=== PATIENT | male | born 1950 | race Caucasian/White ===

== ENCOUNTER 2017-07-18 09:34 | Inpatient (IN) | payer BC ==
[2017-07-18] MEDS ORDERED: NITROGLYCERIN SL TABS 0.4 MG TAB SUBLINGUAL ONE (10:00)
[2017-07-18] MEDS ORDERED: METOPROLOL TARTRATE 5 MG/5 ML VIAL IVP ONE ×2 (10:10→12:25)
[2017-07-18] MEDS ORDERED: ATORVASTATIN 80 MG TAB PO STA (10:47)
[2017-07-18] MEDS ORDERED: SODIUM CHLORIDE 0.9% 1,000 ML in EMPTY BAG 1 BAG IV ONE (10:47)
[2017-07-18] MEDS ORDERED: ALPRAZolam 0.25 MG TAB PO PRN (10:47)
[2017-07-18] MEDS ORDERED: ASPIRIN 325 MG TAB PO STA (10:47)
[2017-07-18] MEDS ORDERED: ALPRAZolam 0.5 MG TAB PO PRN (10:47)
[2017-07-18] MEDS ORDERED: NITROGLYCERIN SL TABS 0.4 MG TAB SUBLINGUAL PRN ×2 (10:47→13:22)
[2017-07-18] MEDS ORDERED: ASPIRIN 325 MG TAB ONE (10:49)
[2017-07-18 11:29] LABS: Glucose,Whole Blood 112 mg/dL (75-99)
[2017-07-18 11:38] LABS: Basophils # (A) 0.1 k/uL (0-0.2); Basophils % (A) 1 %; Eosinophils # (A) 0.3 k/uL (0-0.7); Eosinophils % (A) 4 %; HGB 15.6 gm/dL (13.0-17.5); Lymphocytes # (A) 1.5 k/uL (1.0-4.8); Lymphocytes % (A) 24 %; MCH 30.5 pg (25.0-35.0); MCHC 36.3 g/dL (31.0-37.0); MCV 84.2 fL (80.0-100.0); Mean Platelet Volume 6.9; Monocytes # (A) 0.4 k/uL (0-1.0); Monocytes % (A) 6 %; Neutrophils # (A) 3.8 k/uL (1.3-7.7); Neutrophils % (A) 62 %; Platelet Count 181 k/uL (150-450); RDW 13.5 % (11.5-15.5); WBC 6.1 k/uL (3.8-10.6)
--- NOTE | 2017-07-18 11:48 | P.CRDCN ---
History of Present Illness Consult date: 07/18/17 History of present illness: This is a 66-year-old gentleman with history of hypertension, non-insulin- dependent diabetes mellitus and also hypercholesterolemia who was sent here for cardiac evaluation. Patient also has history of smoking for 35 years. Patient did not complain of any chest pain. However, on the stress test patient started developing ST depressions within 1 minute of exercise unassociated with any chest pain. Patient had frequent PVCs. Stress echocardiogram showed severe hypokinesia of the anterior septal and lateral wall area with suggestive of concurrent cavity dilatation. Patient was given sublingual nitro and also IV Lopressor and after about 10:15 minutes, his a ST-T changes gradually came back to normal. Because of high risk for stress test, patient is advised to have a cardiac catheterization for definitive diagnosis. Patient and family were explained the risks and procedures. Patient is being admitted to the hospital. Patient doesn't have any previous history of myocardial infarction. He does have significant family history of ischemic heart disease. Review of Systems REVIEW OF SYSTEMS: CONSTITUTIONAL:. Patient is doing well. No complaints of fever or chills EYES: Denies diplopia, blurring of vision EARS, NOSE, MOUTH, THROAT: Denies headaches, denies sore throat. CARDIOVASCULAR: Denies chest pain, denies shortness of breath, denies palpitations RESPIRATORY: Denies shortness of breath, denies cough. GASTROINTESTINAL: Denies change in appetite, denies abdominal pain, denies diarrhea GENITOURINARY: Denies hematuria, denies infections. MUSKULOSKELETAL: Denies pain, denies swelling. Denies any cramps or claudication INTEGUMENTARY: Denies rash, denies eczema. NEUROLOGICAL: Denies focal weakness, or visual disturbance. Denies any dizziness or syncope PSYCHIATRIC: Denies anxiety, denies depression. HEMATOLOGIC/LYMPHATIC: Denies any bleeding, denies enlarged lymph nodes. Past Medical History Past Medical History: Diabetes Mellitus, Hypertension Medications and Allergies Home Medications Medication Instructions Recorded Confirmed Type Atorvastatin [Lipitor] 40 mg PO DAILY 07/18/17 07/18/17 History Metoprolol Succinate [Toprol XL] 25 mg PO DAILY 07/18/17 07/18/17 History Non-Formulary Drug [Non Formulary 1 each PO ONCE 07/18/17 07/18/17 History Drug] Non-Formulary Drug [Non Formulary 1 each PO ONCE 07/18/17 07/18/17 History Drug] Allergies Allergy/AdvReac Type Severity Reaction Status Date / Time No Known Allergies Allergy Verified 07/18/17 10:47 Physical Exam Vitals: Intake and Output 07/17/17 07/18/17 07/18/17 22:59 06:59 14:59 Other: Weight 86.455 kg Patient Weight 07/19/17 06:59 Weight 86.455 kg GENERAL EXAM: Patient is alert and oriented and doesn't appear to be in any acute distress HEENT: Normocephalic. Normal reaction of pupils, equal size, normal range of extraocular motion. No erythema or exudates in the throat. NECK: No masses, no nuchal rigidity. CHEST: No chest wall deformity. LUNGS: Equal air entry with no crackles or wheeze. HEART: S1 and S2 normal with no audible mumurs or gallops. Regular rhythm, femorals equal on both sides.. ABDOMEN: No hepatosplenomegaly, normal bowel sounds, no guarding or rigidity. SKIN: No rashes CENTRAL NERVOUS SYSTEM: No focal deficits. EXTREMITIES: No cyanosis, clubbing or edema. Results 07/18/17 11:15 CBC 07/18/17 Range/Units 11:15 WBC 6.1 (3.8-10.6) k/uL RBC 5.10 (4.30-5.90) m/uL Hgb 15.6 (13.0-17.5) gm/dL Hct 43.0 (39.0-53.0) % Plt Count 181 (150-450) k/uL Current Medications Generic Name Dose Route Start Last Admin Trade Name Freq PRN Reason Stop Dose Admin Alprazolam 0.25 mg 07/18/17 10:47 Xanax PO Q6HR PRN Mild Anxiety Alprazolam 0.5 mg 07/18/17 10:47 Xanax PO Q6HR PRN Moderate Anxiety Nitroglycerin 0.4 mg 07/18/17 10:47 Nitrostat SUBLINGUAL Q5M PRN Chest Pain Intake and Output 07/17/17 07/18/17 07/18/17 22:59 06:59 14:59 Other: Weight 86.455 kg Patient Weight 07/19/17 06:59 Weight 86.455 kg 03/09/18 11:15 EKG Interpretations (text) Initial EKG showed sinus rhythm. Subsequent EKG showed significant ST depression in the anterolateral leads during exercise Assessment and Plan (1) Positive cardiac stress test Current Visit: Yes Status: Acute Code(s): R94.39 - ABNORMAL RESULT OF OTHER CARDIOVASCULAR FUNCTION STUDY SNOMED Code(s): 602941636 (2) Hypertension Current Visit: Yes Status: Acute Code(s): I10 - ESSENTIAL (PRIMARY) HYPERTENSION SNOMED Code(s): 46929484 (3) Hypercholesterolemia Current Visit: Yes Status: Acute Code(s): E78.00 - PURE HYPERCHOLESTEROLEMIA , UNSPECIFIED SNOMED Code(s): 14744030 (4) History of smoking Current Visit: Yes Status: Acute Code(s): Z87.891 - PERSONAL HISTORY OF NICOTINE DEPENDENCE SNOMED Code(s): 84654602310819444 Plan: Will proceed with cardiac catheterization for definite diagnosis. Meanwhile we' ll continue his medications.
[2017-07-18] MEDS ORDERED: fentaNYL (PF) 50 MCG/ML 2 ML AMP IVP ONE (12:00)
[2017-07-18] MEDS ORDERED: MIDAZOLAM 2 MG/2 ML VIAL IVP ONE (12:00)
[2017-07-18] MEDS ORDERED: LIDOCAINE 2% INJ 20 MG/ML SQ ONE (12:04)
[2017-07-18 12:26] LABS: Calcium 9.8 mg/dL (8.4-10.2); Potassium 4.6 mmol/L (3.5-5.1)
--- NOTE | 2017-07-18 12:35 | P.PCN ---
Date of Procedure: 07/18/17 Preoperative Diagnosis: Multiple risk factors and strongly positive stress test. Postoperative Diagnosis: Critical lesion involving the proximal LAD. Mild disease in the circumflex and moderate disease in the RCA Description of Procedure: HISTORY: This is a 66-year-old gentleman with history of hypertension, non- insulin-dependent diabetes mellitus and hypercholesterolemia who came for stress test. Patient developed [address] depression within 3 minutes of exercise. These changes were not associated with any chest pain. Stress echo showed severe hypokinesia of the anteroseptal and anterolateral wall with the left ventricle cavity dilatation. Patient is advised to have cardiac catheterization for definitive diagnosis. CONSENT:I have discussed the risks, benefits and alternative therapies for the above-mentioned procedure and for both sedation/analgesia as well as necessary blood product administration, if indicated, as they pertain to this patient. The patient has indicated understanding and acceptance of the risks and procedures discussed. PROCEDURE: Patient was brought to the lab in a fasting state. Patient was given some IV sedation. The right groin is infiltrated with lidocaine and right femoral artery was entered using Seldinger technique. A 6-Lithuanian catheter was left in place and selective coronary arteriography was performed. Patient tolerated the procedure well. Femoral angiogram was performed. Patient is found to have significant disease involving the proximal LAD. Patient is waiting to have stent placement by Dr. Smith Conscious Sedation: Versed 1 mg Fentanyl 50 g Duration 16minutes HEMODYNAMICS: The aortic pressure is about 160/70. Left ankle end-diastolic pressure is about 15-20. There was no gradient across the aortic valve SELECTIVE CORONARY ARTERIOGRAPHY: LEFT MAIN: Normal length and patent THE LEFT ANTERIOR DESCENDING CORONARY ARTERY:. There is a 95% stenosis involving the proximal left anterior descending coronary artery. The rest of the LAD is free of occlusive disease THE LEFT CIRCUMFLEX AND IS CORONARY ARTERY:. This is a moderate caliber vessel giving rise moderate sized OM branch. There is mild disease involving the proximal circumflex and also proximal OM branch THE RIGHT CORONARY ARTERY:. This is a good caliber vessel. There appears to be diffuse disease involving the proximal and mid segment involving a long segment. There appears to be about 50-60% long stenosis LEFT VENTRICULOGRAPHY: Not performed FINAL IMPRESSION:. Critical lesion involving the proximal LAD. Mild disease involving the circumflex and moderate disease involving the RCA involving a long segment in the proximal and mid area PLAN: Stent placement of the LAD to be done by Dr. Smith PROGNOSIS: Fair with successful therapy.
[2017-07-18] MEDS ORDERED: PRASUGREL 10 MG TAB PO ONE (12:57)
[2017-07-18] MEDS ORDERED: BIVALIRUDIN BOLUS 250 MG/50 ML IV ONE (12:57)
[2017-07-18] MEDS ORDERED: BIVALIRUDIN 250 MG in SODIUM CHLORIDE 0.9% 50 ML IV ONE (12:58)
[2017-07-18] MEDS ORDERED: IOHEXOL 350 MG/ML 125ML BOTTLE INJ ONE (13:17)
[2017-07-18] MEDS ORDERED: RX INFO: IV CONTRAST WAS GIVEN 1 EACH MISC MISCELLANE PRN (13:22)
[2017-07-18] MEDS ORDERED: ZOLPIDEM 5 MG TAB PO PRN (13:22)
[2017-07-18] MEDS ORDERED: MAG HYDROX/AL HYDROX/SIMETH 30 ML CUP PO PRN (13:22)
[2017-07-18] MEDS ORDERED: ATROPINE SULFATE 0.1 MG/ML 10ML SYRINGE IV PRN (13:22)
[2017-07-18] MEDS ORDERED: SODIUM CHLORIDE 0.9% 1,000 ML IV SCH (13:30)
--- NOTE | 2017-07-18 13:39 | PTCA ---
PERCUTANEOUSTRANS CORORONARY ANGIOGRAPHY Mr. Moy is a 66-year-old male with known history of hypertension, diabetes mellitus, who underwent a stress test as an outpatient, was found to have early EKG changes as well as anterior wall segmental wall motion abnormality on his stress echo. In view of that, he underwent cardiac catheterization by Dr. Molina and was found to have critical stenosis involving the proximal left anterior descending artery. In view of that, recommendation was made regarding angioplasty and stenting. The procedure as well as the risks and the complications were discussed with the patient who is in full understanding and agreement. PROCEDURE: A 6-Polish EBU 3.75 guiding catheter introduced in the system. A cannulating the left main, a 0.014 balanced medium weight J-wire was advanced across the lesion and positioned distally. Then a 3.0 x 15 mm Xience Alpine stent was deployed, postdilated at 14 atmospheres. After the last inflation, after appropriate wait the balloon and the guidewire were withdrawn back in the guiding catheter. Images were obtained and repeated. Those images reveal stable successful stenting. At that point, the guiding catheter, the balloon and the guidewire were removed. The sheath was removed. Hemostasis was obtained with deployment of an Angio-Seal. There was no immediate complication. Patient is returned to his room in stable condition. Of note, the patient had chest discomfort and EKG changes with inflation that resolved at the end of the procedure. He received Angiomax per protocol as well as oral loading dose of Effient. RESULTS: Successful stenting of the proximal left anterior descending artery with reduction of stenosis from 95% to 0%. RECOMMENDATION: Patient will be continued on aspirin, Effient, beta blockers, GARRET inhibitor and statin. The importance of dual antiplatelet treatment were discussed with the patient and he is in full understanding and agreement. Duration of the procedure is 16 minutes. MMODL / IJN: [id number] /
[2017-07-18 14:41] VITALS: BMI 29.0
[2017-07-18] MEDS: ATORVASTATIN 80 MG TAB PO SCH (19:52)
--- NOTE | 2017-07-18 23:06 | HP ---
HISTORY AND PHYSICAL DATE OF ADMISSION: July 18, 2017. PRESENT COMPLAINT: Abnormal stress test. HISTORY OF PRESENTING COMPLAINT: This is a very pleasant 56-year-old patient of Dr. Lu. Chronic stable medical conditions include diabetes, hypertension, nicotine dependence. The patient's was keen for him to get a stress test done because of his cardiac risk factors and family history. Hence patient came to get a stress test done. On stress test, patient was found to have ST-segment changes and also the stress echocardiogram was found to have a wall motion abnormality. Subsequently patient was taken for a cardiac catheterization, found to have a 95% LAD lesion that was successfully angioplasty stented. The patient did not really have any symptoms and had a good exercise tolerance. Otherwise the patient is currently comfortable, lying in bed. REVIEW OF SYSTEMS: CONSTITUTIONAL: None. HEENT none. Respiratory none. Cardiovascular none. Gastrointestinal none. : None. Musculoskeletal: None. Dermatologic, hematologic, lymphatic none. Psychiatry none. Neurological none. PAST MEDICAL HISTORY: Diabetes mellitus type 2, hypertension. PAST SURGICAL HISTORY: Hernia repair. SOCIAL HISTORY: Patient smoked 2 packs a day for 35 years, stopped over 10 years ago. Worked in [employer] including [employer], etc. . Drinks alcohol occasionally. FAMILY HISTORY: Of stroke, hypertension and liver disease. HOME MEDICATIONS: 1. Olmesartan. 2. Amlodipine. 3. Hydrochlorothiazide combination of 40/10/ 1 tab p.o. daily. 4. /metformin 09/999 1 tab p.o. b.i.d. 5. Toprol-XL 25 p.o. daily. 6. Lipitor 40 mg p.o. daily. ALLERGIES: None. PHYSICAL EXAMINATION: Temperature 98.2, pulse 74, respiratory 18, blood pressure 154/77, pulse ox 97% on room air. General appearance: Average build, lying in bed comfortable. EYES: Pupils equal. Conjunctivae are normal. HEENT external appearance of nose and ears normal. Oral cavity normal. Neck: JVD not raised. Mass not palpable. Respiratory effort normal. Lungs slightly decreased, fair entry. Cardiovascular 1st and 2nd sounds normal. No edema. ABDOMEN: Soft, nontender. Liver and spleen not palpable. Lymphatics: No lymph nodes palpable in the neck or axillae. PSYCHIATRY: Alert and oriented x3. Mood and affect normal. Neurological: Pupils equal. Cranial nerves grossly intact. Power and sensation grossly intact. INVESTIGATIONS: White count 6.1, hemoglobin 15.6, potassium 4.6. BUN and creatinine is normal. ASSESSMENT: 1. Coronary artery disease detected by abnormal stress test with successful angioplasty to the LAD. 2. Diabetes mellitus type 2 on oral hypoglycemic. 3. Essential hypertension. 4. Hyperlipidemia. PLAN: Patient is status post a stent to the LAD. The patient is put on aspirin and Effient. Accu-Cheks will be followed. Metformin component of combination oral hypoglycemics will be held. Check Accu-Cheks. Care was discussed with the patient. Questions were answered. Copy to Dr. Lu. Patient is seen by Dr. Molina from Cardiology and who also did a diagnostic cardiac catheterization followed by intervention by Dr. Smith. Copy to Dr. Lu. MMNATALIYAL / IJN: [id number] /
[2017-07-19 05:52] LABS: Glucose,Whole Blood 116 mg/dL (75-99)
[2017-07-19] MEDS: INSULIN ASPART 100 UNIT/ML 1 ML 10 ML VIAL SQ SCH ×2 (06:22→12:42)
[2017-07-19 06:40] VITALS: RESP 18
[2017-07-19 07:06] LABS: Calcium 9.6 mg/dL (8.4-10.2); Potassium 5.1 mmol/L (3.5-5.1)
[2017-07-19] MEDS ORDERED: amLODIPine 10 MG TAB PO SCH (09:00)
[2017-07-19] MEDS ORDERED: OLMESARTAN PO SCH (09:00)
[2017-07-19] MEDS ORDERED: HYDROCHLOROTHIAZIDE 25 MG TAB PO SCH (09:00)
[2017-07-19] MEDS ORDERED: ASPIRIN 81 MG PO SCH (09:00)
[2017-07-19] MEDS ORDERED: HCTHIAZID PO SCH (09:00)
[2017-07-19] MEDS ORDERED: AMLODIPIN PO SCH (09:00)
[2017-07-19] MEDS ORDERED: METOPROLOL SUCCINATE (ER) 25 MG TAB.ER.24H PO SCH (09:00)
[2017-07-19] MEDS ORDERED: LOSARTAN 50 MG TAB PO SCH (09:00)
[2017-07-19] MEDS ORDERED: [UNRECOGNIZED DRUG - OTHER] PO SCH (09:00)
[2017-07-19 09:20] VITALS: TEMP 98
[2017-07-19 11:46] LABS: Glucose,Whole Blood 129 mg/dL (75-99)
[2017-07-19] MEDS ORDERED: PRASUGREL 10 MG TAB PO SCH (12:00)
[2017-07-19] MEDS: ATORVASTATIN 80 MG TAB PO SCH (12:47)
[2017-07-19 13:16] VITALS: PULSE 60
[2017-07-19 13:23] VITALS: BP 138/45
--- NOTE | 2017-07-19 13:51 | P.PN ---
Subjective Patient is doing well from a chronic standpoint. His groin is healed well. He denies any chest discomfort no undue shortness of breath and dizziness lightheadedness or palpitations vitals are stable Afebrile 90F, pulse rate in the 70s, blood pressure 130-45 mmHg It sounds are clear no rhonchi no crackles Heart sounds are normal normal S1 normal S2 Abdomen soft nontender Groins of healed well Impression Coronary artery disease, significant status post cardiac stenting Plan continue current medications including dual antiplatelet therapy and patient to go home and follow Dr. Smith Objective - Vital Signs Vital signs: Vital Signs Temp 98 F 07/19/17 08:00 Pulse 60 07/19/17 12:00 Resp 18 07/19/17 12:00 BP 138/45 07/19/17 12:00 Pulse Ox 95 07/19/17 12:00 Intake & Output 07/18/17 07/19/17 07/19/17 18:59 06:59 18:59 Intake Total 1820.1 820 240 Output Total 800 Balance 1020.1 820 240 Weight 86.455 kg 89.5 kg Intake: IV 470.1 820 Sodium Chloride 0.9% 1, 820 000 ml @ 100 mls/hr IV . Q10H KELVIN Rx#:[id number] Intake, IV Titration 550 Amount Sodium Chloride 0.9% 1, 550 000 ml @ 100 mls/hr IV . Q10H KELVIN Rx#:[id number] Oral 800 240 Output: Urine 800 Other: Voiding Method Toilet # Voids 3 - Labs CBC & Chem 7: 07/18/17 11:15 07/19/17 05:56 Labs: Abnormal Lab Results - Last 24 Hours (Table) 07/19/17 07/19/17 07/19/17 Range/Units 05:50 05:56 11:41 Glucose 120 H (74-99) mg/dL POC Glucose (mg/dL) 116 H 129 H (75-99) mg/dL Triglycerides 262 H (<150) mg/dL
--- NOTE | 2017-07-19 18:25 | DS ---
DISCHARGE SUMMARY DATE OF ADMISSION: July 18, 2017. DATE OF DISCHARGE: July 19, 2017. FINAL DIAGNOSES: 1. Coronary artery disease with abnormal stress test. 2. Diabetes mellitus type 2 on oral hypoglycemics. 3. Essential hypertension. 4. Hyperlipidemia. PROCEDURE: Cardiac catheterization with angioplasty stenting to LAD. HOSPITAL COURSE: This patient presented with a stress test that was abnormal. Underwent coronary intervention to LAD. Successful angioplasty and stenting. Patient is asymptomatic, up and about. The patient's LDL is 84. EXAM: Lungs are clear. Cardiovascular: 1st and second sounds normal. CONSULTATION: Dr. Molina did the diagnostic catheterization and Dr. Smith did the intervention part. DISCHARGE MEDICATIONS: 1. Xigduo XR 09/999 1 tab p.o. b.i.d. 2. Toprol-XL 25 mg p.o. daily. 3. Aspirin 81 mg daily. 4. Lipitor 80 mg q.h.s. 5. Chlorthalidone 25 mg p.o. daily. 6. Cozaar 150 mg p.o. q.h.s. 7. Nitrostat 0.4 sublingual q.5 p.r.n. 8. Effient 10 mg p.o. daily. 9. Norvasc 10 mg p.o. daily. FOLLOW UP: With Dr. Lu in 1 week. Follow up with Dr. Molina in [address] Lu. MMNATALIYAL / IJN: [id number] /
--- NOTE | 2017-07-22 11:14 | ECHOS ---
- Stress Test Note Stress Test Results/Findings: Exam Performed: stress echo exercise Exam Date: 07/18/17 Reason for Exam: chest pain Height: 5 ft 8 in Weight: 86.455 kg Protocol: jeffrey Stage: 2 Duration of Exercise: 3:45 Resting Heart Rate: 98 Resting Blood Pressure: 163/56 Maximum Achieved Heart Rate: 151 Maximum Achieved Blood Pressure: 197/88 85% PMHR: 133 100% PMHR: 156 METS: 7.1 Technologist Comment: Stress Test Results/Findings: This is a 66-year-old gentleman with history of hypertension, non-insulin- dependent diabetes mellitus and previous smoking history who was sent for cardiac evaluation because of risk factor profile. He also has history of ischemic heart disease in the family. Baseline EKG showed sinus rhythm with normal VT interval and QRS duration. Blood pressure at rest is 163/56 with a pulse rate of 98. Patient walked on the Jeffrey protocol for about 3 minutes and 45 seconds achieving a maximum to 151 with a blood pressure 197/88. EKGs during exercise showed about [address] depression in inferolateral leads suggestive of ischemia. Patient also had frequent PVCs. Patient did not experience any chest pain. He took about almost 18 minutes for normalization of the EKG changes. Patient was given sublingual nitro and also IV Lopressor. Echo data. Baseline echo images show normal wall motion and thickening. Exercise echo images showed severe hypokinesia to dyskinesia of the anteroseptal and anterolateral wall with generalized hypokinesia and left ventricular cavity dilatation. Final impression: #1. Strongly positive stress test at low workloads #2. Strongly positive stress echo suggestive of a the left main disease or triple- vessel disease #3. Patient did not experience any chest pain MTDD
== END 2017-07-19 14:30 | disposition home or self-care (01) | DRG 247 ==
LOC: RADNMMAIN 09:34 → 6SEL 10:31
PROVIDERS: ADMIT Hospitalist; ATTEND Hospitalist
PROC: B2111ZZ Fluoroscopy of Multiple Coronary Arteries using Low Osmolar Contrast (ICD-10-PCS; 2017-07-18)
PROC: 027034Z Dilation of Coronary Artery, One Artery with Drug-eluting Intraluminal Device, Percutaneous Approach (ICD-10-PCS; principal; 2017-07-18 11:45)
PROC: 4A023N7 Measurement of Cardiac Sampling and Pressure, Left Heart, Percutaneous Approach (ICD-10-PCS; 2017-07-18 11:45)
DX: I25.10 Atherosclerotic heart disease of native coronary artery without angina pectoris (principal); E11.9 Type 2 diabetes mellitus without complications; E78.00 Pure hypercholesterolemia, unspecified; E78.5 Hyperlipidemia, unspecified; I10 Essential (primary) hypertension; Z79.84 Long term (current) use of oral hypoglycemic drugs; Z79.899 Other long term (current) drug therapy; Z82.49 Family history of ischemic heart disease and other diseases of the circulatory system; Z87.891 Personal history of nicotine dependence; I49.3 Ventricular premature depolarization
CPT/HCPCS: 80048; 80061; 85025; 93017; 93350; 93458

== ENCOUNTER → 2018-07-09 | Outpatient (CLI) | payer BC ==
[2018-07-09 13:23] LABS: HCT 46.6 % (39.0-53.0); HGB 15.7 gm/dL (13.0-17.5); MCH 29.9 pg (25.0-35.0); MCHC 33.8 g/dL (31.0-37.0); MCV 88.5 fL (80.0-100.0); Mean Platelet Volume 6.4; Platelet Count 208 k/uL (150-450); RBC 5.27 m/uL (4.30-5.90); RDW 13.8 % (11.5-15.5); WBC 7.1 k/uL (3.8-10.6)
[2018-07-09 18:43] LABS: Anion Gap 10.9 mmol/L (4.00-12.00); Carbon Dioxide 28.1 mmol/L (21.6-31.8); Potassium 4.3 mmol/L (3.5-5.5)
== END | disposition home or self-care (01) ==
LOC: LABWHC1 11:55
PROVIDERS: ATTEND Internal Medicine Cardiovascular Disease
DX: Z01.812 Encounter for preprocedural laboratory examination (principal); I10 Essential (primary) hypertension; E11.9 Type 2 diabetes mellitus without complications; E78.2 Mixed hyperlipidemia
CPT/HCPCS: 36415; 80051; 82565; 84520; 85027

== ENCOUNTER → 2018-07-14 | Day surgery (SDC) | payer BC ==
[2018-07-09 14:38] VITALS: BMI 28.5
[~2018-07-14] MED LIST: ADENOSINE 90 MG in SODIUM CHLORIDE 0.9% 60 ML IVP ONE; ALPRAZolam 0.25 MG TAB PO PRN; ALPRAZolam 0.5 MG TAB PO PRN; ASPIRIN 325 MG TAB PO STA; ASPIRIN 81 MG ONE; ASPIRIN 81 MG PO SCH; ATORVASTATIN 80 MG TAB PO SCH; ATORVASTATIN 80 MG TAB PO STA; CHLORTHALIDONE 25 MG TAB PO SCH; ERTUGLIFLOZIN PIDOLATE 15 MG PO SCH; HEPARIN SODIUM 1,000 UN/ML (10ML VL) IV ONE; IOPAMIDOL-370 150ML BTL INJ ONE; LIDOCAINE 1% INJ 10MG/ML (20 ML MDV) SQ ONE; METOPROLOL SUCCINATE (ER) 50 MG TAB.ER.24H PO SCH; MIDAZOLAM 2 MG/2 ML VIAL IVP ONE; NITROGLYCERIN 1000MCG/10ML SYRINGE INTRACORON ONE; NITROGLYCERIN SL TABS 0.4 MG TAB SUBLINGUAL PRN; NON-FORMULARY DRUG (Losartan Potassium [Losartan Potassium] 100 MG) PO SCH; PRASUGREL 10 MG TAB PO SCH; RX INFO: IV CONTRAST WAS GIVEN 1 EACH MISC MISCELLANE PRN; SODIUM CHLORIDE 0.9% 1,000 ML IV SCH; SODIUM CHLORIDE 0.9% 1,000 ML in EMPTY BAG 1 BAG IV ONE; VERAPAMIL SYRINGE (5 MG/10 ML) INTRAARTER ONE; amLODIPine 10 MG TAB PO SCH; fentaNYL (PF) 50 MCG/ML 2 ML AMP IVP ONE
[2018-07-14 08:44] LABS: Glucose,Whole Blood 133 mg/dL (75-99)
[2018-07-14 08:48] VITALS: RESP 18; TEMP 98
--- NOTE | 2018-07-14 10:28 | P.CARDCATH ---
Date of Procedure: 07/14/18 Preoperative Diagnosis: Positive stress test and known ischemic heart disease Postoperative Diagnosis: Intermediate to severe disease in the OM branch and also in the right coronary artery. Patent stent in the LAD Procedure(s) Performed: Left heart catheterization without left ventriculography Description of Procedure: HISTORY: This is a 67-year-old gentleman with history of known ischemic heart disease and previous stent placement of the left anterior descending. He is also known to have borderline lesion in the RCA and also so mild to moderate disease in circumflex. Recent stress test showed reversible ischemia involving the inferolateral segments. Patient is advised to have cardiac catheterization to assess coronary artery disease CONSENT:I have discussed the risks, benefits and alternative therapies for the above-mentioned procedure and for both sedation/analgesia as well as necessary blood product administration, if indicated, as they pertain to this patient. The patient has indicated understanding and acceptance of the risks and procedures discussed. PROCEDURE: Patient was brought to the lab in a fasting state. Patient was given some IV sedation. The right wrist is infiltrated with lidocaine and right radial artery was entered using Seldinger technique. A 6-Divehi catheter was left in place and selective coronary arteriography was performed. Patient tolerated the procedure well. Patient went on to have FFR of OM branch by Dr. Smith. Conscious Sedation: Versed 1mg Fentanyl 50 g Duration 24minutes HEMODYNAMICS: The aortic pressure is 150/60. Left ventricular end-diastolic pressure is about 12 to 15. There is no gradient across the aortic valve SELECTIVE CORONARY ARTERIOGRAPHY: LEFT MAIN: Short and free of occlusive disease THE LEFT ANTERIOR DESCENDING CORONARY ARTERY:. This is a good caliber vessel giving rise to good-sized diagonal branch. The stent in the proximal LAD is free of occlusive disease. The diagonal has mild to moderate disease THE LEFT CIRCUMFLEX AND IS CORONARY ARTERY:. This is a good caliber vessel giving rise good-sized OM branch. The OM branch has about 70% stenosis in the proximal portion. THE RIGHT CORONARY ARTERY: His is a moderate caliber vessel giving rise to PDA. There is a diffuse disease involving the proximal and mid segment with about 70% stenosis. This involves a long segment. The distal RCA is free of occlusive disease LEFT VENTRICULOGRAPHY:. Not performed FINAL IMPRESSION: Diffuse coronary artery disease with patent stent in the LAD, intermittently to severe disease involving the OM branch and also proximal and mid RCA. Films were reviewed with the Dr. Smith. Patient is going to have FFR of OM branch. If it is found to be significant, patient will have stent placement. Because of the diffuse long lesion in the RCA, it is advised that patient be treated medically for this lesion. PLAN: As above PROGNOSIS: Fair
--- NOTE | 2018-07-14 11:08 | PCN ---
PROCEDURE NOTE FRACTIONAL FLOW RESERVE MEASUREMENT: Mr. Moy is a 67-year-old male with known history of coronary artery disease status post percutaneous revascularization of his proximal LAD in 2018 who underwent cardiac catheterization by Dr. Molina and was found to have a patent stent with borderline lesion in the OM branch. In view of that, recommendation beginning the fraction flow reserve. The procedure as well as risks and the complications were discussed with the patient who is in full understanding and agreement. PROCEDURE: A 6-Cameroonian FL 3.5 guiding catheter in the system. After cannulating the left main, a [place] Doppler wire was advanced and the obtuse marginal branch positioned distally. Then fractional flow reserve was performed after an infusion of adenosine per protocol. The fractional flow reserve was 97. At that point, the guidewire and the sheath were removed. Hemostasis was obtained with deployment of a TR band. There was no immediate complication. Patient was returned to his room in stable condition. Of note, the patient received a total of 5000 units of intravenous heparin during the procedure. There was no immediate complication. FINDINGS: Non-hemodynamically significant lesion in the first obtuse marginal branch with fractional flow reserve of 97%. RECOMMENDATION: Patient will be continued on medical therapy. Those findings and recommendation were discussed with the patient and his family who are in full understanding and agreement. Duration of procedure is 13 minutes. MMODL / IJN: [id number] /
[2018-07-14 16:39] VITALS: BP 136/74; PULSE 64
== END | disposition home or self-care (01) ==
LOC: CATHCVL 07:58
PROVIDERS: ATTEND Internal Medicine Cardiovascular Disease
DX: I25.10 Atherosclerotic heart disease of native coronary artery without angina pectoris (principal); I10 Essential (primary) hypertension; E78.2 Mixed hyperlipidemia; I25.9 Chronic ischemic heart disease, unspecified; F17.200 Nicotine dependence, unspecified, uncomplicated; R94.39 Abnormal result of other cardiovascular function study; E11.9 Type 2 diabetes mellitus without complications; Z95.5 Presence of coronary angioplasty implant and graft; Z82.49 Family history of ischemic heart disease and other diseases of the circulatory system; Z79.82 Long term (current) use of aspirin; Z79.899 Other long term (current) drug therapy
CPT/HCPCS: 93458; 93571; C1887; C1769; C1894; J2250; J2001; J3010; J1644; J0153; Q9967

== ENCOUNTER → 2022-02-13 | Outpatient (CLI) | payer MEDICARE ==
[2022-02-13 13:55] LABS: African American GFR (CKD) 58 (>60 ml/min/1.73 sqM); Blood Urea Nitrogen 33 mg/dL (9-20); Non-African American GFR(CKD) 50 (>60 ml/min/1.73 sqM)
--- NOTE | 2022-02-13 17:37 | CT ---
EXAMINATION TYPE: CT angio neck DATE OF EXAM: 02/13/2022 HISTORY: CAROTID STENOSIS COMPARISON: CT DLP: 327.50 mGycm. Automated Exposure Control for Dose Reduction was Utilized. TECHNIQUE: CTA scan of the neck is performed with IV Contrast, patient injected with 65 mL of Isovue 370, axial images are obtained, coronal and sagittal reformatted images are reviewed. Three-D recons tructed images are created on an independent workstation and reviewed. Source images are reviewed. FINDINGS: Carotid/Vascular Structures: There is a 3 vessel arch. Vertebral arteries are codominant. Common car otid arteries to the bifurcations appear normal. Left carotid bifurcation: Atheromatous plaquing is present at the left carotid bifurcation. There zach ears to be a critical stenosis of the left internal carotid artery origin. On close inspection very f aint contrast appears to be within the small left internal carotid artery to the skull base. Left Ext ernal carotid artery is patent. Right carotid bifurcation: There is focal narrowing at the origin of the right internal carotid arter y. Based on measurement criteria, this is narrowing of at least 50%. On visual inspection this appear s greater. The right internal carotid artery is patent to the skull base. Cervical of [place]: Vertebral basilar system appears normal. Posterior cerebral vasculature is unrema rkable. Internal carotid arteries bifurcate normally into A1 and M1 segments. A2 segments are normal. The anterior communicating artery is patent. Left Posterior communicating artery is patent. Right po sterior communicating artery is patent. 3-D reconstructed images of the [place] of [place] are not obta ined. IMPRESSION: 1. Critical stenosis at the origin of the left internal carotid artery. 2. At least moderate stenosis of the proximal right internal carotid artery. This appears greater on visual inspection. NASCET criteria was used in interpretation of this exam? A [place] critical message alert has been initiated for Velasquez Smith MD via the [employer] Critical Results System on 02/13/2022 5:35 PM. This message alert has been sent to Velasquez Smith MD via the preferences provided by the clinician for the receipt of Radiology Critical Findings. Message ID [id number].
== END | disposition home or self-care (01) ==
LOC: RADCTMAIN 13:06
PROVIDERS: ATTEND Internal Medicine Interventional Cardiology
DX: I65.23 Occlusion and stenosis of bilateral carotid arteries (principal)
CPT/HCPCS: 80061; 82565; 84520; 70498; 36415; Q9967

== ENCOUNTER 2022-03-14 07:34 | Day surgery (SDC) | payer MEDICARE ==
[2022-03-12 08:24] VITALS: BMI 28.1
[~2022-03-14 07:34] MED LIST changes: -ADENOSINE 90 MG in SODIUM CHLORIDE 0.9% 60 ML IVP ONE; -ASPIRIN 81 MG ONE; -ASPIRIN 81 MG PO SCH; -ATORVASTATIN 80 MG TAB PO SCH; -CHLORTHALIDONE 25 MG TAB PO SCH; -ERTUGLIFLOZIN PIDOLATE 15 MG PO SCH; -HEPARIN SODIUM 1,000 UN/ML (10ML VL) IV ONE; +HEPARIN SODIUM,PORCINE 10,000 UNIT in SODIUM CHLORIDE 0.9% 1,000 ML IRRIGATION PRN; +HEPARIN SODIUM,PORCINE 2,500 UNIT in SODIUM CHLORIDE 0.9% 250 ML IRRIGATION PRN; -IOPAMIDOL-370 150ML BTL INJ ONE; -LIDOCAINE 1% INJ 10MG/ML (20 ML MDV) SQ ONE; -METOPROLOL SUCCINATE (ER) 50 MG TAB.ER.24H PO SCH; -MIDAZOLAM 2 MG/2 ML VIAL IVP ONE; -NITROGLYCERIN 1000MCG/10ML SYRINGE INTRACORON ONE; -NON-FORMULARY DRUG (Losartan Potassium [Losartan Potassium] 100 MG) PO SCH; -PRASUGREL 10 MG TAB PO SCH; -RX INFO: IV CONTRAST WAS GIVEN 1 EACH MISC MISCELLANE PRN; -SODIUM CHLORIDE 0.9% 1,000 ML IV SCH; -SODIUM CHLORIDE 0.9% 1,000 ML in EMPTY BAG 1 BAG IV ONE; +SODIUM CHLORIDE 0.9% 1,000 ML in EMPTY BAG 1 BAG IV SCH; -VERAPAMIL SYRINGE (5 MG/10 ML) INTRAARTER ONE; -amLODIPine 10 MG TAB PO SCH; -fentaNYL (PF) 50 MCG/ML 2 ML AMP IVP ONE
[2022-03-14 07:53] VITALS: RESP 18; TEMP 97.9
[2022-03-14 07:58] LABS: Basophils # (A) 0.1 k/uL (0-0.2); Basophils % (A) 1 %; Eosinophils # (A) 0.3 k/uL (0-0.7); Eosinophils % (A) 4 %; HCT 38.3 % (39.0-53.0); HGB 13.6 gm/dL (13.0-17.5); Lymphocytes # (A) 2.2 k/uL (1.0-4.8); Lymphocytes % (A) 27 %; MCHC 35.7 g/dL (31.0-37.0); MCV 86.8 fL (80.0-100.0); Mean Platelet Volume 7.6; Monocytes # (A) 0.5 k/uL (0-1.0); Monocytes % (A) 7 %; Neutrophils # (A) 4.8 k/uL (1.3-7.7); Neutrophils % (A) 59 %; Platelet Count 189 k/uL (150-450)
[2022-03-14 08:00] LABS: Glucose,Whole Blood 174 mg/dL (70-110)
[2022-03-14 08:16] LABS: Calcium 9.7 mg/dL (8.4-10.2)
[2022-03-14 08:20] LABS: Potassium 5.2 mmol/L (3.5-5.1)
[2022-03-14] MEDS ORDERED: HEPARIN SODIUM 1,000 UN/ML (10ML VL) ONE (10:59)
[2022-03-14] MEDS ORDERED: VERAPAMIL 2.5 MG/ML 2 ML AMP ONE (10:59)
[2022-03-14] MEDS ORDERED: fentaNYL (PF) 50 MCG/1 ML VIAL IV ONE (11:22)
[2022-03-14] MEDS ORDERED: LIDOCAINE 1% INJ 10MG/ML (30 ML VIAL-PF) SQ ONE (11:25)
[2022-03-14] MEDS: VERAPAMIL SYRINGE (5 MG/10 ML) INTRAARTER ONE ×2 (11:27→11:55)
[2022-03-14] MEDS: HEPARIN SODIUM 1,000 UN/ML (10ML VL) IV ONE ×2 (11:28→11:36)
[2022-03-14] MEDS ORDERED: CLOPIDOGREL 75 MG TAB ONE (11:33)
[2022-03-14] MEDS ORDERED: CLOPIDOGREL 75 MG TAB PO ONE (11:38)
[2022-03-14] MEDS ORDERED: NITROGLYCERIN 1000MCG/10ML SYRINGE INTRACORON ONE (11:39)
[2022-03-14] MEDS ORDERED: IOPAMIDOL-370 125ML BTL INJ ONE (11:49)
[2022-03-14] MEDS ORDERED: IOPAMIDOL-370 100ML BTL INJ ONE (11:56)
[2022-03-14] MEDS ORDERED: ATROPINE SULFATE 0.1 MG/ML 10ML SYRINGE IV PRN (12:00)
[2022-03-14] MEDS ORDERED: SODIUM CHLORIDE 0.9% 1,000 ML in EMPTY BAG 1 BAG IV SCH (12:00)
[2022-03-14] MEDS ORDERED: RX INFO: IV CONTRAST WAS GIVEN 1 EACH MISC MISCELLANE PRN (12:00)
[2022-03-14] MEDS ORDERED: NITROGLYCERIN SL TABS 0.4 MG TAB SUBLINGUAL PRN (12:00)
[2022-03-14] MEDS ORDERED: ZOLPIDEM 5 MG TAB PO PRN (12:00)
[2022-03-14] MEDS ORDERED: MAG HYDROX/AL HYDROX/SIMETH 30 ML CUP PO PRN (12:00)
[2022-03-14] MEDS ORDERED: SODIUM CHLORIDE 0.9% 1,000 ML IV ONE (13:00)
--- NOTE | 2022-03-14 14:22 | P.CARDCATH ---
Date of Procedure: 03/14/22 Description of Procedure: Cardiac Catheterization: The patient is a 71-year-old male with a known history of CAD, post PCI who has been complaining of chest discomfort and had an abnormal MPI. Recommendations were made regarding cardiac catheterization, the risks and the complications were discussed with the patient who is in full understanding and agreement. Procedure Description: Patient was brought to labor utilization superintendent in fasting semi-sedated state after receiving Fentanyl and Benadryl achieiving moderate conscious sedated state. Using Xylocaine Anesthesia and Seldinger technique, a 6-Peruvian sheath was introduced in the right radial artery . Subsequently, selective coronary angiography was performed using a 5-Peruvian 3.5 bend Saqib catheter. Multiple views of the coronary artery including hemiaxial views were obtained. The right Saqib catheter was used to cross the aortic valve and LVEDP was calculated. After obtaining images a 6-Peruvian 0.75 AL guiding catheter was introduced and after cannulating the right coronary ostium a 0.014 BMW J-wire was positioned in the distal RCA. A 2.5 x 12 mm Treck balloon was advanced and 2 inflation at 8 treva were done, after removing the balloon a 2.5 x 18 mm Xience jaymie point was advanced, deployed at 16 treva. After removing the balloon another 2.5 x 15 mm Xience jaymie point stent was positioned distal to the first one and dilated at 14 treva. An inflation in the overlapped segment was done. Following that and after obtaining images the catheter and sheath were removed. Hemostasis was obtained with deployment of TR band . There was no immediate complication. Patient was returned to room in stable condition. Of note, the patient received a total of 6000 units of intravenous heparin as well as intra-arterial verapamil. He received a loading dose of clopidogrel. His ACT was followed. He had EKG changes that resolved at the end of the procedure. Findings: Fluoroscopy: Calcifications involving the coronary arteries were noted Left main:This is a short sized vessel, bifurcating into LAD and left circumflex, left main has no high-grade stenosis. LAD:This is a large size vessel, calcified, reaching to the apex, giving rise to 2 diagonal branch, the stented segment in the proximal LAD is patent with no evidence of significant in-stent restenosis. There is mild disease in the midsegment of 20-30%. Left circumflex:This is a large nondominant vessel giving rise to a large proximal OM that has 40-50 % plaque, the rest of the vessel has no high-grade stenosis RCA:This is a large dominant vessel the midsegment has an 80-90% eccentric lesion prior to the bifurcation, the rest of the vessel has no high-grade stenosis. Left Ventriculogram:Not performed Hemodynamics:There was no gradient across the aortic valve , LVEDP [id number] mmHg Conclusion: 1. Calcified coronary arteries 2. Patent stent in the LAD with uwzj-kv-kgredqyz disease in the mid LAD and OM1 3. Critical stenosis in the mid RCA 4. Successful stenting of the mid RCA with reduction of stenosis from 85% to 0% Recommendations: The patient will continue on dual antiplatelet treatment with aspirin and clopidogrel for 6 months in addition to aggressive coronary risks modifications. He'll be evaluated at a later time regarding his obstructive carotid disease. The findings and the recommendations were discussed with the patient and the family and they were in full understanding and agreement. Duration of sedation is 39 minutes.
[2022-03-14 15:34] VITALS: BP 152/67; PULSE 64
[2022-03-14] MEDS ORDERED: hydrALAZINE HCL 50 MG TAB PO SCH (21:00)
[2022-03-15] MEDS ORDERED: METOPROLOL SUCCINATE (ER) 50 MG TAB.ER.24H PO SCH (09:00)
[2022-03-15] MEDS ORDERED: hydroCHLOROthiazide 12.5 MG CAP PO SCH (09:00)
[2022-03-15] MEDS ORDERED: ASPIRIN 81 MG PO SCH (09:00)
[2022-03-15] MEDS ORDERED: ATORVASTATIN 80 MG TAB PO SCH (09:00)
[2022-03-15] MEDS ORDERED: amLODIPine 10 MG TAB PO SCH (09:00)
[2022-03-15] MEDS ORDERED: EZETIMIBE 10 MG TAB PO SCH (09:00)
[2022-03-15] MEDS ORDERED: CLOPIDOGREL 75 MG TAB PO SCH (09:00)
[2022-03-15] MEDS ORDERED: LOSARTAN 50 MG TAB PO SCH (09:00)
== END 2022-03-14 16:20 | disposition home or self-care (01) ==
LOC: CATHCVL 07:34
PROVIDERS: ATTEND Internal Medicine Interventional Cardiology
DX: Q23.1 Congenital insufficiency of aortic valve (principal); E11.9 Type 2 diabetes mellitus without complications; I10 Essential (primary) hypertension; E78.5 Hyperlipidemia, unspecified
CPT/HCPCS: 93458; 80048; 85025; C9600; C1769 ×3; C1887; C1894; C1725; C1874 ×2; J2001; J1644; Q9967 ×2; J3010

== ENCOUNTER 2022-04-10 05:45 | Inpatient (IN) | payer MEDICARE ==
[2022-04-10] MEDS ORDERED: ASPIRIN 325 MG TAB PO PRN (05:47)
[2022-04-10] MEDS ORDERED: CLOPIDOGREL 75 MG TAB PO PRN (05:47)
[2022-04-10] MEDS ORDERED: NITROGLYCERIN SL TABS 0.4 MG TAB SUBLINGUAL PRN (05:47)
[2022-04-10] MEDS ORDERED: SODIUM CHLORIDE 0.9% 1,000 ML in EMPTY BAG 1 BAG IV ONE (05:47)
[2022-04-10] MEDS ORDERED: ALPRAZolam 0.25 MG TAB PO PRN (05:47)
[2022-04-10] MEDS ORDERED: ASPIRIN 81 MG PO PRN (05:47)
[2022-04-10] MEDS ORDERED: ALPRAZolam 0.5 MG TAB PO PRN (05:47)
[2022-04-10] MEDS ORDERED: SODIUM CHLORIDE 0.9% 1,000 ML IV ONE (06:06)
[2022-04-10 06:22] LABS: Glucose,Whole Blood 161 mg/dL (70-110)
[2022-04-10 06:25] VITALS: RESP 16; TEMP 98.2
[2022-04-10] MEDS ORDERED: ASPIRIN 81 MG ONE (06:30)
[2022-04-10] MEDS ORDERED: LIDOCAINE 1% INJ 10MG/ML (30 ML VIAL-PF) SQ ONE (07:44)
[2022-04-10] MEDS ORDERED: HEPARIN SODIUM 1,000 UN/ML (10ML VL) IV ONE (07:56)
[2022-04-10] MEDS ORDERED: hydrALAZINE HCL 20 MG/ML 1 ML VIAL IV ONE (07:57)
[2022-04-10] MEDS ORDERED: IOPAMIDOL-250 100ML BTL INTRAARTER ONE ×2 (08:13→08:35)
--- NOTE | 2022-04-10 08:41 | P.PCN ---
Description of Procedure: DESCRIPTION OF PROCEDURE(S): PROCEDURES PERFORMED: Ascending aortic root angiography, bilateral selective carotid angiography INDICATION: Carotid artery stenosis HISTORY: Patient is a pleasant 71 year old male with history of CAD with prior PCI and carotid artery stenosis with ultrasound read of occluded left carotid and right 80-99% stenosis. CTA had shown possible left carotid perfusion. Therefore decision was made to perform angiogram with possible carotid intervention. CONSENT:I have discussed the risks, benefits and alternative therapies for the above-mentioned procedure and for both sedation/analgesia as well as necessary blood product administration, if indicated, as they pertain to this patient. The patient has indicated understanding and acceptance of the risks and procedures discussed. PROCEDURE: After the risks, benefits and alternatives of the above mentioned procedure explained in detail with the patient, informed consent was obtained. Patient was taken to the catheterization lab and prepped and draped in usual fashion. 1% lidocaine was used to anesthetize the right femoral area. A 6- Japanese sheath was placed in the right femoral artery using modified Seldinger technique. A 5-Japanese pigtail catheter was inserted to the ascending aorta and DSA imaging was obtained. Next using VTK catheter the proximal right and left internal carotid arteries were engaged and selective angiography was performed. Angiography showed moderate disease and by measurement was 54% stenosis at its greatest. Therefore no intervention was recommended. A right femoral angiogram was performed and anatomoy was suitable for closure. A 6Fr Angioseal was placed with hemostasis achieved. The patient tolerated the procedure well. Patient was transported back to the post catheterization holding area in stable condition. Conscious Sedation: Patient was monitored under the direct supervision of vision of myself for conscious sedation using Versed and fentanyl for a total duration of 49 minutes ASCENDING AORTA: There is no significant aneurysm or stenosis. Right common carotid: No significant stenosis Right internal carotid artery: 75% stenosis of the DALIA Left common carotid: no significant stenosis Left internal carotid artery: 99% left internal carotid artery stenosis with trickle flow FINAL IMPRESSION: 1. 75% right internal carotid artery stenosis and 99% left internal carotid artery stenosis PLAN: 1. Aggressive risk factor modification per most recent ACC/AHA guidelines. 2. Discussed with vascular surgery and they will evaluate for possible left internal carotid artery intervention.
[2022-04-10] MEDS ORDERED: amLODIPine 10 MG TAB PO STA (08:55)
[2022-04-10] MEDS ORDERED: METOPROLOL SUCCINATE (ER) 50 MG TAB.ER.24H PO STA (08:55)
[2022-04-10] MEDS ORDERED: hydrALAZINE HCL 25 MG TAB PO STA (08:55)
[2022-04-10] MEDS ORDERED: LOSARTAN-HCTZ 50-12.5 MG 1 EACH TAB PO SCH (09:00)
[2022-04-10] MEDS ORDERED: LOSARTAN 50 MG TAB PO SCH (09:00)
--- NOTE | 2022-04-10 10:27 | IR ---
EXAMINATION TYPE: IR angio carotid cerv BILAT DATE OF EXAM: 04/10/2022 CLINICAL HISTORY: Carotid stenosis TECHNIQUE: Fluoroscopy. COMPARISON: CTA neck February 13, 2022. FINDINGS: Fluoroscopic guidance was provided during carotid angiogram procedure performed by Dr. Jackie thompson. A total of 7.2 minutes of fluoroscopic time was utilized during the procedure and 337 spot im ages was acquired. Please refer to procedure note for further details. IMPRESSION: As Above.
[2022-04-10 12:20] VITALS: BP 135/63; PULSE 84
== END 2022-04-10 12:55 | disposition home or self-care (01) | DRG 68 ==
LOC: 2ORMAIN 05:45
PROVIDERS: ADMIT Internal Medicine; ATTEND Internal Medicine
PROC: B41F1ZZ Fluoroscopy of Right Lower Extremity Arteries using Low Osmolar Contrast (ICD-10-PCS; 2022-04-10)
PROC: B3181ZZ Fluoroscopy of Bilateral Internal Carotid Arteries using Low Osmolar Contrast (ICD-10-PCS; 2022-04-10)
PROC: B3101ZZ Fluoroscopy of Thoracic Aorta using Low Osmolar Contrast (ICD-10-PCS; principal; 2022-04-10 07:30)
DX: I65.23 Occlusion and stenosis of bilateral carotid arteries (principal); E11.51 Type 2 diabetes mellitus with diabetic peripheral angiopathy without gangrene; I25.10 Atherosclerotic heart disease of native coronary artery without angina pectoris; Z98.61 Coronary angioplasty status; I08.3 Combined rheumatic disorders of mitral, aortic and tricuspid valves; I10 Essential (primary) hypertension; E78.5 Hyperlipidemia, unspecified; Z79.84 Long term (current) use of oral hypoglycemic drugs; Z79.899 Other long term (current) drug therapy
CPT/HCPCS: 86850; 86900; 86901

== ENCOUNTER → 2022-04-24 | Outpatient (CLI) | payer MEDICARE ==
[2022-04-24 14:27] LABS: Basophils # (A) 0.11 X 10*3/uL (0.00-0.10); Basophils % (A) 1.5 %; Eosinophils # (A) 0.31 X 10*3/uL (0.04-0.35); Eosinophils % (A) 4.1 %; HCT 37.5 % (39.6-50.0); HGB 13.1 g/dL (13.0-17.0); Immature Grans, Automated 0.3 %; Lymphocytes # (A) 2.04 X 10*3/uL (0.90-5.00); Lymphocytes % (A) 27.3 %; MCH 30.1 pg (27.0-32.0); MCHC 34.9 g/dL (32.0-37.0); MCV 86.2 fL (80.0-97.0); Mean Platelet Volume 9.6 fL (9.5-12.2); Monocytes # (A) 0.63 X 10*3/uL (0.20-1.00); Monocytes % (A) 8.4 %; NRBC Per 100 WBC 0 /100 WBCS (0.0-0.0); Neutrophils # (A) 4.37 X 10*3/uL (1.80-7.70); Neutrophils % (A) 58.4 %; Platelet Count 211 X 10*3/uL (140-440); RBC 4.35 X 10*6/uL (4.40-5.60); RDW 12.3 % (11.5-14.5); WBC 7.48 X 10*3/uL (4.50-10.00)
[2022-04-24 14:43] LABS: African American GFR (CKD) 51.4 (60.0-200.0); Albumin 4.6 g/dL (3.8-4.9); Albumin/Globulin Ratio 1.67 (1.60-3.17); Anion Gap 13.9 mmol/L (10.00-18.00); BUN/Creat Ratio 17.83 Ratio (12.00-20.00); Calcium 10.3 mg/dL (8.7-10.3); Carbon Dioxide 25.5 mmol/L (20.0-27.5); Globulin 2.7 g/dL (1.6-3.3); Non-African American GFR(CKD) 44.3 (60.0-200.0); Potassium 3.9 mmol/L (3.5-5.5); T4, Free (Free Thyroxine) 1.16 ng/dL (0.800-1.800); Total Bilirubin 0.4 mg/dL (0.30-1.20); Total Protein 7.3 g/dL (6.2-8.2)
[2022-04-24 15:05] LABS: INR 0.86 (0.90-1.11); Prothrombin Time 9.8 sec (9.9-11.9)
== END | disposition home or self-care (01) ==
LOC: LABWHC1 10:22
PROVIDERS: ATTEND Family Medicine
DX: Z01.812 Encounter for preprocedural laboratory examination (principal); I10 Essential (primary) hypertension; E11.9 Type 2 diabetes mellitus without complications
CPT/HCPCS: 36415; 80053; 83036; 84439; 84443; 85025; 85610

== ENCOUNTER 2022-05-14 08:30 | Inpatient (IN) | payer MEDICARE ==
[2022-05-24] MEDS ORDERED: ALPRAZolam 0.5 MG TAB PO PRN (05:46)
[2022-05-24] MEDS ORDERED: NITROGLYCERIN SL TABS 0.4 MG TAB SUBLINGUAL PRN (05:46)
[2022-05-24] MEDS ORDERED: ALPRAZolam 0.25 MG TAB PO PRN (05:46)
[2022-05-24] MEDS ORDERED: SODIUM CHLORIDE 0.9% 1,000 ML in EMPTY BAG 1 BAG IV ONE (05:46)
[2022-05-24] MEDS ORDERED: SODIUM CHLORIDE 0.9% 1,000 ML IV ONE (08:39)
[2022-05-24] MEDS ORDERED: RX INFO: IV CONTRAST WAS GIVEN 1 EACH MISC MISCELLANE PRN (09:00)
[2022-05-24 09:20] LABS: Glucose,Whole Blood 203 mg/dL (70-110)
[2022-05-24] MEDS ORDERED: INSULIN ASPART (NovoLOG) 100 UNIT/ML VIAL SQ ONE (09:32)
[2022-05-24] MEDS ORDERED: ASPIRIN 81 MG ONE (09:33)
[2022-05-24] MEDS ORDERED: CLOPIDOGREL 75 MG TAB ONE (09:33)
[2022-05-24] MEDS ORDERED: DEXMEDETOMIDINE/0.9% NACL(PMX) 400 MCG in EMPTY BAG 1 BAG IV SCH (09:39)
[2022-05-24] MEDS ORDERED: PROTAMINE SULFATE 10 MG/ML 5 ML VIAL IV ONE (10:00)
[2022-05-24] MEDS ORDERED: GLYCOPYRROLATE 0.2 MG/ML 2 ML VIAL ONE (10:00)
[2022-05-24] MEDS ORDERED: MIDAZOLAM 2 MG/2 ML VIAL ONE (10:00)
[2022-05-24] MEDS ORDERED: HEPARIN SODIUM,PORCINE 10,000 UNIT/ML 1 ML VIAL ONE (10:00)
[2022-05-24] MEDS ORDERED: fentaNYL (PF) 50 MCG/ML 2 ML AMP ONE (10:00)
--- NOTE | 2022-05-24 10:03 | P.HPIHPCON ---
History of Present Illness H&P Date: 05/24/22 Stan is a 71-year-old male in today for revascularization of his left internal carotid artery stenosis. At his last visit we had long discussions regarding the possibilities of repair options given the appearance of imaging. We discussed trans-carotid artery revascularization as well as open carotid repair. At that time it was decided that the artery had high-grade stenosis but did appear patent therefore at this time he is here today for trans-carotid artery revascularization and possible open repair if T car is not amenable Consent for Procedure: I have explained the operation/procedure to the patient, including the risks, benefits, side effects, alternative therapies (including not receiving the proposed treatment or service), the likelihood of the patient achieving his/her goals, and potential recuperation problems for the procedure/sedation/analgesia, as well as any blood products, if indicated. I also explained to the patient the risks, benefits and side effects of the alternatives, as well as the risks related to not receiving the proposed procedure, care, treatment, or services. Past Medical History Past Medical History: Coronary Artery Disease (CAD), Diabetes Mellitus, Hyperlipidemia, Hypertension Additional Past Medical History / Comment(s): carotid artery stenosis, recent cardiac cath w/stent History of Any Multi-Drug Resistant Organisms: None Reported Past Surgical History: Heart Catheterization With Stent, Hernia Repair Additional Past Surgical History / Comment(s): ONE CARDIAC STENT Past Anesthesia/Blood Transfusion Reactions: No Reported Reaction Date of Last Stent Placement:: 03-14-22 Smoking Status: Former smoker - Past Family History Father Family Medical History: Cancer Mother Family Medical History: Diabetes Mellitus, Myocardial Infarction ([place]) Medications and Allergies Home Medications Medication Instructions Recorded Confirmed Type Aspirin 81 mg PO DAILY chew 07/19/17 05/22/22 Rx Nitroglycerin Sl Tabs [Nitrostat] 0.4 mg SUBLINGUAL Q5M PRN #25 tab 07/19/17 05/22/22 Rx amLODIPine [Norvasc] 10 mg PO DAILY #30 tab 07/19/17 05/22/22 Rx Metoprolol Succinate [Toprol XL] 50 mg PO DAILY 07/09/18 05/22/22 History metFORMIN HCL [Glucophage] 1,000 mg PO DAILY 07/09/18 05/22/22 History Atorvastatin [Lipitor] 80 mg PO DAILY 03/12/22 05/22/22 History Chlorthalidone 50 mg PO DAILY 03/12/22 05/22/22 History Cholecalciferol [Vitamin D3 (25 50 mcg PO DAILY 03/12/22 05/22/22 History Mcg = 1000 Iu)] Ezetimibe [Zetia] 10 mg PO DAILY 03/12/22 05/22/22 History Losartan/Hydrochlorothiazide 1 tab PO DAILY 03/12/22 05/22/22 History [Losartan-Hctz 100-12.5 mg Tab] hydrALAZINE HCL 75 mg PO BID 03/12/22 05/22/22 History Clopidogrel [Plavix] 75 mg PO DAILY #90 tab 03/14/22 05/22/22 Rx Semaglutide [Ozempic] 0.25 mg SQ MO 04/08/22 05/22/22 History Allergies Allergy/AdvReac Type Severity Reaction Status Date / Time No Known Allergies Allergy Verified 05/22/22 09:17 Surgical - Exam Vital Signs Temp Pulse Resp BP Pulse Ox 97.8 F 60 16 184/88 98 05/24/22 09:27 05/24/22 09:27 05/24/22 09:27 05/24/22 09:27 05/24/22 09:27 Gen a pleasant cooperative male in no acute distress. HEENT is no cephalic, atraumatic, excellent motion intact. Heart appears regular. Lungs are clear. Abdomen is soft. Extremities show no clubbing, cyanosis or edema. Cranial nerves II through XII grossly intact Results - Labs Abnormal Lab Results - Last 24 Hours (Table) 05/24/22 Range/Units 09:13 POC Glucose (mg/dL) 203 H (70-110) mg/dL Assessment and Plan Assessment: High-grade left internal carotid artery stenosis Plan: Discussed with the patient that if the artery is occluded at this time no further intervention will be needed. If it is patent we will attempt to go forward with the trans-carotid artery revascularization and if that is unamenable going forward with the carotid endarterectomy today.
[2022-05-24] MEDS ORDERED: LIDOCAINE 1% INJ 10MG/ML (30 ML VIAL-PF) SQ ONE (10:31)
[2022-05-24] MEDS ORDERED: ATROPINE SULFATE 0.1 MG/ML 10ML SYRINGE IV PRN (12:15)
[2022-05-24] MEDS ORDERED: MAG HYDROX/AL HYDROX/SIMETH 30 ML CUP PO PRN (12:15)
--- NOTE | 2022-05-24 12:15 | P.OP ---
Date of Procedure: 05/24/22 Description of Procedure: Preoperative diagnosis: Asymptomatic high-grade left internal carotid artery stenosis Postoperative diagnosis: Same Procedure: Left Transcarotid artery revascularization with stenting. Right common femoral vein central venous catheter placement under ultrasound guidance Surgeon: Marsha Monroe DO Piece Goods Clerk: Ellie Schmitt Anesthesia: Conscious sedation Complications: None Condition: Stable Flow reversal time: 15 minutes Lesion length: 20 mm Indication for procedure: The patient is a 71-year-old male who previously had workup and evaluation including a cervical angiogram showing high-grade severe stenosis of the left internal carotid artery. He was sent for evaluation was deemed to be a candidate for trans-carotid artery revascularization and stenting. Risks and benefits of previously been discussed. He seemingly understood and was willing to proceed. Operative narrative: After written and informed consent was obtained the patient all risks benefits and competitions were described the patient was brought to the [facility] and laid in a supine position. The area of the neck and groins were prepped and draped in usual sterile fashion after appropriate anesthetic was performed per the anesthesiologist. A timeout was performed in normal fashion and antibiotics were administered prior to incision. Utilizing ultrasound the common carotid artery was located and a transverse incision was created overlying this area after proper anesthetization. Dissection was carried between the sternocleidomastoid musculature down to the carotid sheath. The sheath was then incised and the common carotid artery was located and dissected free in a circumferential manner and controlled with umbilical tape. Once controlled, attention was placed down to the common femoral vein and utilizing ultrasound the vein was cannulated and the 8-Korean sheath was placed in normal fashion. Attention was then placed back to the carotid artery and the patient was administered heparin and followed with ACTs and redosed as needed for ACT above 250. A pursestring suture was then placed at the common carotid artery with 5-0 Prolene and utilizing a micropuncture needle the common carotid artery was accessed and wire was placed followed by a 4-Korean sheath. Carotid angiogram was then obtained demonstrating significant stenosis in the internal carotid artery. Stiff wire was then placed followed by the 8 [place] sheath. Flow reversal was then established with the enroute ABRASIVE COATING MACHINE OPERATOR system after patient's blood pressure was increased to above 160, heart rate above 60 and ACT above 250. 014 wire was then placed across the lesion followed by a 4 x 30 mm [place] balloon and balloon angioplasty was performed followed by an 10 x 40 mm Silkroad stent. Postdilatation was performed with a 5 x 30 balloon and final angiogram was obtained demonstrating complete resolution of the stenosis. All guidewires and catheters were removed and the sheath was removed and the arteriotomy was secured with the previously placed pursestring suture. Hemostasis was assured with Gelfoam and thrombin. A small drain was placed. The area was irrigated and closed. The platysma was closed with 3-0 Vicryl. The skin was closed with running 4-0 Monocryl in subcuticular fashionThe femoral sheath was also removed and pressure was held for hemostasis. The patient all procedure well and was moving all extremities and following commands. The patient was then sent to PACU for recovery.
[2022-05-24] MEDS: PHENYLEPHRINE 40 MG in SODIUM CHLORIDE 0.9% 250 ML IV SCH ×5 (12:50→17:21)
[2022-05-24 13:42] LABS: Glucose,Whole Blood 215 mg/dL (70-110)
--- NOTE | 2022-05-24 14:22 | IR ---
EXAMINATION TYPE: IR stent intravas non coronary DATE OF EXAM: 05/24/2022 COMPARISON: NONE HISTORY: Fluoroscopy time. Fluoroscopy was provided to the referring clinician.
[2022-05-24 16:53] LABS: Glucose,Whole Blood 318 mg/dL (70-110)
[2022-05-24] MEDS ORDERED: DEXTROSE 50% SYRINGE 50 ML IVP PRN ×2 (17:18)
[2022-05-24] MEDS: INSULIN ASPART (NovoLOG) 100 UNIT/ML VIAL SQ SCH ×2 (17:26→20:10)
--- NOTE | 2022-05-24 18:10 | P.HPIM ---
History of Present Illness H&P Date: 05/24/22 Patient is a 71-year-old male with diabetes mellitus type 2 [id number], hypertension, dyslipidemia, coronary artery disease status post stenting who presented for elective TCAR. He had no immediate postoperative complications. Patient seen and examined at bedside. He reports that he has had a mild left- sided neck pain but not significant enough to want medications. He denies any lightheadedness, dizziness, nausea, chest pain, shortness of breath. He does have some sore throat and hoarseness. He is not having any difficulty swallowing or controlling his secretions. Pertinent positives and negatives as discussed in HPI, a complete review of systems was performed and all other systems are negative. Vital signs reviewed General: nontoxic, no distress, appears at stated age Derm: warm, dry Head: atraumatic, normocephalic, symmetric Eyes: EOMI, no lid lag, anicteric sclera, pupils equal round reactive to light ENT: Nose and ears atraumatic, no thrush, + pharyngeal erythema, dressing with NATTY drain in place over left neck Neck: No thyromegaly, no cervical lymphadenopathy, trachea midline, supple Mouth: no lip lesion, mucus membranes moist Cardiovascular: S1S2 reg, no murmur, positive posterior tibial pulse bilateral, no edema, capillary refill less than 2 seconds Lungs: clear to auscultation bilateral, no rhonchi, no rales, no wheeze, no accessory muscle use Abdominal: soft, nontender to palpation, no guarding, no appreciable organomegaly, normal bowel sounds Ext: no gross muscle atrophy, moving all 4 extremities independently, no contractures Neuro: CN II-XII grossly intact, light touch intact all 4 extremities, finger to nose within normal limits, Psych: Alert, oriented, appropriate affect Assessment/Plan: 71-year-old male status post left sided TCAR due to carotid arterial disease Diabetes mellitus type 2, [id number] with postoperative hyperglycemia, post-op BS 318 -Patient reports preoperative hemoglobin A1c was 7.2 and sugars are typically well controlled. -He was started on ozempic approximately 6 weeks ago and takes metformin -Hold metformin -Last was ozempic was 05/20/22 - SSI Coronary artery disease -Resume aspirin and Plavix -Resume beta jose alberto, statin Hypertention, controlled -Resume Norvasc, losartan hydrochlorothiazide, metoprolol, hydralazine, and chlorthalidone Dyslipidemia -Statin Thank you for allowing us to participate in the care of this pleasant patient. Do not hesitate to contact us with questions. Someone can be reached from the [facility] hospitalist group all hours of the day at [phone] or via [employer]. Past Medical History Past Medical History: Coronary Artery Disease (CAD), Diabetes Mellitus, Hyperlipidemia, Hypertension Additional Past Medical History / Comment(s): Carotid artery stenosis History of Any Multi-Drug Resistant Organisms: None Reported Past Surgical History: Heart Catheterization With Stent, Hernia Repair Additional Past Surgical History / Comment(s): Three cardiac stents, hernia repair in 2009, TCAR 05/24/22 (this admission) Past Anesthesia/Blood Transfusion Reactions: No Reported Reaction Date of Last Stent Placement:: 03-14-22 Past Psychological History: No Psychological Hx Reported Smoking Status: Former smoker Past Alcohol Use History: Rare Past Drug Use History: None Reported - Past Family History Father Family Medical History: Cancer Additional Family Medical History / Comment(s): Esophogeal cancer Mother Family Medical History: Diabetes Mellitus, Myocardial Infarction ([place]) Medications and Allergies Home Medications Medication Instructions Recorded Confirmed Type Aspirin 81 mg PO DAILY chew 07/19/17 05/22/22 Rx Nitroglycerin Sl Tabs [Nitrostat] 0.4 mg SUBLINGUAL Q5M PRN #25 tab 07/19/17 05/22/22 Rx amLODIPine [Norvasc] 10 mg PO DAILY #30 tab 07/19/17 05/22/22 Rx Metoprolol Succinate [Toprol XL] 50 mg PO DAILY 07/09/18 05/22/22 History metFORMIN HCL [Glucophage] 1,000 mg PO DAILY 07/09/18 05/22/22 History Atorvastatin [Lipitor] 80 mg PO DAILY 03/12/22 05/22/22 History Chlorthalidone 50 mg PO DAILY 03/12/22 05/22/22 History Cholecalciferol [Vitamin D3 (25 50 mcg PO DAILY 03/12/22 05/22/22 History Mcg = 1000 Iu)] Ezetimibe [Zetia] 10 mg PO DAILY 03/12/22 05/22/22 History Losartan/Hydrochlorothiazide 1 tab PO DAILY 03/12/22 05/22/22 History [Losartan-Hctz 100-12.5 mg Tab] hydrALAZINE HCL 75 mg PO BID 03/12/22 05/22/22 History Clopidogrel [Plavix] 75 mg PO DAILY #90 tab 03/14/22 05/22/22 Rx Semaglutide [Ozempic] 0.25 mg SQ MO 04/08/22 05/22/22 History Allergies Allergy/AdvReac Type Severity Reaction Status Date / Time No Known Allergies Allergy Verified 05/22/22 09:17 Physical Exam Osteopathic Statement: *. No significant issues noted on an osteopathic structural exam other than those noted in the History and Physical/Consult. Vitals: Vital Signs Temp Pulse Pulse Pulse Resp BP BP 05/24/22 18:06 69 18 05/24/22 16:48 98.2 F 76 18 05/24/22 16:20 72 16 05/24/22 15:50 74 16 05/24/22 15:20 76 16 05/24/22 14:50 63 16 05/24/22 14:35 60 16 05/24/22 14:20 60 16 05/24/22 14:05 63 16 05/24/22 13:52 63 16 05/24/22 13:36 60 16 05/24/22 13:30 05/24/22 13:21 57 L 16 05/24/22 13:15 05/24/22 13:06 54 L 16 05/24/22 13:02 05/24/22 12:52 60 16 05/24/22 12:36 57 L 16 05/24/22 12:21 97 F L 66 16 05/24/22 09:30 97.8 F 60 16 184/80 05/24/22 09:27 97.8 F 60 16 184/88 BP BP BP Pulse Ox 05/24/22 18:06 146/65 98 05/24/22 16:48 171/68 98 05/24/22 16:20 149/67 98 05/24/22 15:50 156/43 142/63 98 05/24/22 15:20 154/49 155/68 99 05/24/22 14:50 144/49 125/61 99 05/24/22 14:35 135/47 134/65 98 05/24/22 14:20 135/50 129/60 98 05/24/22 14:05 135/51 131/63 98 05/24/22 13:52 142/53 125/60 99 05/24/22 13:36 129/50 137/64 98 05/24/22 13:30 133/51 05/24/22 13:21 136/50 141/67 98 05/24/22 13:15 158/56 05/24/22 13:06 161/56 169/75 98 05/24/22 13:02 112/45 05/24/22 12:52 106/43 109/59 97 05/24/22 12:36 100/40 110/54 97 05/24/22 12:21 97/42 122/60 95 05/24/22 09:30 98 05/24/22 09:27 187/74 98 Intake and Output 05/24/22 05/24/22 05/24/22 06:59 14:59 22:59 Intake Total 450 990 Output Total 240 400 Balance 210 590 Intake: IV 450 450 Oral 540 Output: Urine 40 400 Estimated Blood Loss 200 Other: Weight 84.6 kg 84.6 kg Results Labs: Abnormal Lab Results - Last 24 Hours (Table) 05/24/22 05/24/22 05/24/22 Range/Units 09:13 13:40 16:52 POC Glucose (mg/dL) 203 H 215 H 318 H (70-110) mg/dL Thrombosis Risk Factor Assmnt - Choose All That Apply Any of the Below Risk Factors Present?: No Other Risk Factors: Yes Each Risk Factor Represents 2 Points: Age 61-74 years Other congenital or acquired thrombophilia - If yes, enter type in comment: No Thrombosis Risk Factor Assessment Total Risk Factor Score: 2 Thrombosis Risk Factor Assessment Level: Low Risk
--- NOTE | 2022-05-24 19:22 | P.CONS ---
History of Present Illness - Reason for Consult Consult date: 05/24/22 DM 2 Requesting physician: Marsha Monroe - History of Present Illness Patient is a 71-year-old male with diabetes mellitus type 2 [id number]-[id number], hypertension, dyslipidemia, coronary artery disease status post stenting who presented for elective TCAR. He had no immediate postoperative complications. Patient seen and examined at bedside. He reports that he has had a mild left- sided neck pain but not significant enough to want medications. He denies any lightheadedness, dizziness, nausea, chest pain, shortness of breath. He does have some sore throat and hoarseness. He is not having any difficulty swallowing or controlling his secretions. Pertinent positives and negatives as discussed in HPI, a complete review of systems was performed and all other systems are negative. Vital signs reviewed General: nontoxic, no distress, appears at stated age Derm: warm, dry Head: atraumatic, normocephalic, symmetric Eyes: EOMI, no lid lag, anicteric sclera, pupils equal round reactive to light ENT: Nose and ears atraumatic, no thrush, + pharyngeal erythema, dressing with NATTY drain in place over left neck Neck: No thyromegaly, no cervical lymphadenopathy, trachea midline, supple Mouth: no lip lesion, mucus membranes moist Cardiovascular: S1S2 reg, no murmur, positive posterior tibial pulse bilateral, no edema, capillary refill less than 2 seconds Lungs: clear to auscultation bilateral, no rhonchi, no rales, no wheeze, no accessory muscle use Abdominal: soft, nontender to palpation, no guarding, no appreciable organomegaly, normal bowel sounds Ext: no gross muscle atrophy, moving all 4 extremities independently, no contractures Neuro: CN II-XII grossly intact, light touch intact all 4 extremities, finger to nose within normal limits, Psych: Alert, oriented, appropriate affect Assessment/Plan: 71-year-old male status post left sided TCAR due to carotid arterial disease Diabetes mellitus type 2, [id number] with postoperative hyperglycemia, post-op BS 318 -Patient reports preoperative hemoglobin A1c was 7.2 and sugars are typically well controlled. -He was started on ozempic approximately 6 weeks ago and takes metformin -Hold metformin -Last was ozempic was 05/20/22 - SSI Coronary artery disease -Resume aspirin and Plavix -Resume beta jose alberto, statin Hypertention, controlled -Resume Norvasc, losartan hydrochlorothiazide, metoprolol, hydralazine, and chlorthalidone Dyslipidemia -Statin Thank you for allowing us to participate in the care of this pleasant patient. Do not hesitate to contact us with questions. Someone can be reached from the [facility] hospitalist group all hours of the day at [phone] or via [employer]. Past Medical History Past Medical History: Coronary Artery Disease (CAD), Diabetes Mellitus, Hyperlipidemia, Hypertension Additional Past Medical History / Comment(s): Carotid artery stenosis History of Any Multi-Drug Resistant Organisms: None Reported Past Surgical History: Heart Catheterization With Stent, Hernia Repair Additional Past Surgical History / Comment(s): Three cardiac stents, hernia repair in 2009, TCAR 05/24/22 (this admission) Past Anesthesia/Blood Transfusion Reactions: No Reported Reaction Date of Last Stent Placement:: 03-14-22 Past Psychological History: No Psychological Hx Reported Smoking Status: Former smoker Past Alcohol Use History: Rare Past Drug Use History: None Reported - Past Family History Father Family Medical History: Cancer Additional Family Medical History / Comment(s): Esophogeal cancer Mother Family Medical History: Diabetes Mellitus, Myocardial Infarction ([place]) Medications and Allergies Home Medications Medication Instructions Recorded Confirmed Type Aspirin 81 mg PO DAILY chew 07/19/17 05/22/22 Rx Nitroglycerin Sl Tabs [Nitrostat] 0.4 mg SUBLINGUAL Q5M PRN #25 tab 07/19/17 05/22/22 Rx amLODIPine [Norvasc] 10 mg PO DAILY #30 tab 07/19/17 05/22/22 Rx Metoprolol Succinate [Toprol XL] 50 mg PO DAILY 07/09/18 05/22/22 History metFORMIN HCL [Glucophage] 1,000 mg PO DAILY 07/09/18 05/22/22 History Atorvastatin [Lipitor] 80 mg PO DAILY 03/12/22 05/22/22 History Chlorthalidone 50 mg PO DAILY 03/12/22 05/22/22 History Cholecalciferol [Vitamin D3 (25 50 mcg PO DAILY 03/12/22 05/22/22 History Mcg = 1000 Iu)] Ezetimibe [Zetia] 10 mg PO DAILY 03/12/22 05/22/22 History Losartan/Hydrochlorothiazide 1 tab PO DAILY 03/12/22 05/22/22 History [Losartan-Hctz 100-12.5 mg Tab] hydrALAZINE HCL 75 mg PO BID 03/12/22 05/22/22 History Clopidogrel [Plavix] 75 mg PO DAILY #90 tab 03/14/22 05/22/22 Rx Semaglutide [Ozempic] 0.25 mg SQ MO 04/08/22 05/22/22 History Allergies Allergy/AdvReac Type Severity Reaction Status Date / Time No Known Allergies Allergy Verified 05/22/22 09:17 Physical Exam Osteopathic Statement: *. No significant issues noted on an osteopathic structural exam other than those noted in the History and Physical/Consult. Vitals: Vital Signs Temp Pulse Pulse Pulse Resp BP BP 05/24/22 18:06 69 18 05/24/22 16:48 98.2 F 76 18 05/24/22 16:20 72 16 05/24/22 15:50 74 16 05/24/22 15:20 76 16 05/24/22 14:50 63 16 05/24/22 14:35 60 16 05/24/22 14:20 60 16 05/24/22 14:05 63 16 05/24/22 13:52 63 16 05/24/22 13:36 60 16 05/24/22 13:30 05/24/22 13:21 57 L 16 05/24/22 13:15 05/24/22 13:06 54 L 16 05/24/22 13:02 05/24/22 12:52 60 16 05/24/22 12:36 57 L 16 05/24/22 12:21 97 F L 66 16 05/24/22 09:30 97.8 F 60 16 184/80 05/24/22 09:27 97.8 F 60 16 184/88 BP BP BP Pulse Ox 05/24/22 18:06 146/65 98 05/24/22 16:48 171/68 98 05/24/22 16:20 149/67 98 05/24/22 15:50 156/43 142/63 98 05/24/22 15:20 154/49 155/68 99 05/24/22 14:50 144/49 125/61 99 05/24/22 14:35 135/47 134/65 98 05/24/22 14:20 135/50 129/60 98 05/24/22 14:05 135/51 131/63 98 05/24/22 13:52 142/53 125/60 99 05/24/22 13:36 129/50 137/64 98 05/24/22 13:30 133/51 05/24/22 13:21 136/50 141/67 98 05/24/22 13:15 158/56 05/24/22 13:06 161/56 169/75 98 05/24/22 13:02 112/45 05/24/22 12:52 106/43 109/59 97 05/24/22 12:36 100/40 110/54 97 05/24/22 12:21 97/42 122/60 95 05/24/22 09:30 98 05/24/22 09:27 187/74 98 Intake and Output 05/24/22 05/24/22 05/24/22 06:59 14:59 22:59 Intake Total 450 990 Output Total 240 400 Balance 210 590 Intake: IV 450 450 Oral 540 Output: Urine 40 400 Estimated Blood Loss 200 Other: Weight 84.6 kg 84.6 kg Results Labs: Abnormal Lab Results - Last 24 Hours (Table) 05/24/22 05/24/22 05/24/22 Range/Units 09:13 13:40 16:52 POC Glucose (mg/dL) 203 H 215 H 318 H (70-110) mg/dL
[2022-05-24 20:03] LABS: Glucose,Whole Blood 300 mg/dL (70-110)
[2022-05-24] MEDS: hydrALAZINE HCL 25 MG TAB PO SCH (20:10)
[2022-05-24] MEDS ORDERED: ATORVASTATIN 40 MG TAB PO SCH (21:00)
[2022-05-25] MEDS: PHENYLEPHRINE 40 MG in SODIUM CHLORIDE 0.9% 250 ML IV SCH (05:17)
[2022-05-25 06:16] LABS: Glucose,Whole Blood 173 mg/dL (70-110)
[2022-05-25] MEDS: INSULIN ASPART (NovoLOG) 100 UNIT/ML VIAL SQ SCH (06:25)
[2022-05-25] MEDS ORDERED: ATORVASTATIN 80 MG TAB PO SCH (09:00)
[2022-05-25] MEDS ORDERED: METOPROLOL SUCCINATE (ER) 50 MG TAB.ER.24H PO SCH (09:00)
[2022-05-25] MEDS ORDERED: CHOLECALCIFEROL 25 MCG (1000 IU) TABLET PO SCH (09:00)
[2022-05-25] MEDS ORDERED: amLODIPine 10 MG TAB PO SCH (09:00)
[2022-05-25] MEDS ORDERED: EZETIMIBE 10 MG TAB PO SCH (09:00)
[2022-05-25] MEDS ORDERED: CLOPIDOGREL 75 MG TAB PO SCH (09:00)
[2022-05-25] MEDS ORDERED: CHLORTHALIDONE 25 MG TAB PO SCH (09:00)
[2022-05-25] MEDS ORDERED: LOSARTAN 50 MG TAB PO SCH (09:00)
[2022-05-25] MEDS ORDERED: LOSARTAN-HCTZ 50-12.5 MG 1 EACH TAB PO SCH (09:00)
[2022-05-25] MEDS ORDERED: ASPIRIN 81 MG PO SCH (09:00)
[2022-05-25 09:25] VITALS: BP 160/72; PULSE 85; RESP 16; TEMP 98.2
[2022-05-25] MEDS: hydrALAZINE HCL 25 MG TAB PO SCH (09:26)
--- NOTE | 2022-05-25 09:27 | P.PN ---
Subjective Progress Note Date: 05/25/22 Patient is status post left trans-carotid arterial revascularization. Indicates she feels well and offers no complaints. He is eating and voiding without issue. Objective - Vital Signs Vital signs: Vital Signs Temp 98.2 F 05/25/22 09:24 Pulse 85 05/25/22 09:24 Resp 16 05/25/22 09:24 BP 160/72 05/25/22 09:24 Pulse Ox 97 05/25/22 09:24 FiO2 Intake & Output 05/24/22 05/25/22 05/25/22 18:59 06:59 18:59 Intake Total 1440 Output Total 640 300 Balance 800 -300 Weight 84.6 kg Intake: IV 900 Oral 540 Output: Drainage 50 Left Neck 50 Urine 440 250 Estimated Blood Loss 200 Other: Voiding Method Toilet - Exam Cranial nerves II through XII are grossly intact. Surgical wounds clean, dry and healing well. Surgical drain is removed. Equal motor strength is noted in the upper and lower extremities bilaterally. - Labs Labs: Abnormal Lab Results - Last 24 Hours (Table) 05/24/22 05/24/22 05/24/22 Range/Units 08:44 13:40 16:52 POC Glucose (mg/dL) 215 H 318 H (70-110) mg/dL Hemoglobin A1c 7.4 H (0.0-6.0) % 05/24/22 05/25/22 Range/Units 20:02 06:14 POC Glucose (mg/dL) 300 H 173 H (70-110) mg/dL Hemoglobin A1c (0.0-6.0) % Assessment and Plan Assessment: Status post TCAR on left. Satisfactory progress. Plan: Surgically stable for discharge. Patient has adequate supply of aspirin, Plavix and statin medications at home. Time with Patient: Less than 30
--- NOTE | 2022-05-25 09:31 | P.DS ---
Providers Date of admission: 05/24/22 08:18 Expected date of discharge: 05/25/22 Attending physician: Marsha Monroe DO Consults: 05/24/22 13:30 Consult Physician Routine Consulting Provider: Corina Ely Consult Reason/Comments: medical managment, post carotid stent Do you want consulting provider notified?: Yes Primary care physician: [facility] Hospital Course: Patient underwent TCAR left carotid on May 24. He had an unremarkable operative procedure and postoperatively did well. At the time discharge patient was awake alert cooperative and exhibited no n eurologic issues. Surgical wounds clean, dry and healing in an otherwise unremarkable manner. Surgical drain was removed on the day of discharge. Assessment: Postop day #1 status post trans-carotid arterial revascularization left Procedures: Trans-carotid arterial revascularization (TCAR) left carotid Patient Condition at Discharge: Good Plan - Discharge Summary Discharge Rx Participant: No New Discharge Prescriptions: Continue Aspirin 81 mg PO DAILY chew Nitroglycerin Sl Tabs [Nitrostat] 0.4 mg SUBLINGUAL Q5M PRN #25 tab PRN Reason: Chest Pain metFORMIN HCL [Glucophage] 1,000 mg PO DAILY Chlorthalidone 50 mg PO DAILY Atorvastatin [Lipitor] 80 mg PO DAILY Clopidogrel [Plavix] 75 mg PO DAILY #90 tab Cholecalciferol [Vitamin D3 (25 Mcg = 1000 Iu)] 50 mcg PO DAILY Ezetimibe [Zetia] 10 mg PO DAILY Semaglutide [Ozempic] 0.25 mg SQ MO No Action amLODIPine [Norvasc] 10 mg PO DAILY #30 tab Metoprolol Succinate [Toprol XL] 50 mg PO DAILY Losartan/Hydrochlorothiazide [Losartan-Hctz 100-12.5 mg Tab] 1 tab PO DAILY hydrALAZINE HCL 75 mg PO BID Discharge Medication List Aspirin 81 mg PO DAILY chew 07/19/17 [Rx] Nitroglycerin Sl Tabs [Nitrostat] 0.4 mg SUBLINGUAL Q5M PRN #25 tab 07/19/17 [Rx] amLODIPine [Norvasc] 10 mg PO DAILY #30 tab 07/19/17 [Rx] Metoprolol Succinate [Toprol XL] 50 mg PO DAILY 07/09/18 [History] metFORMIN HCL [Glucophage] 1,000 mg PO DAILY 07/09/18 [History] Atorvastatin [Lipitor] 80 mg PO DAILY 03/12/22 [History] Chlorthalidone 50 mg PO DAILY 03/12/22 [History] Cholecalciferol [Vitamin D3 (25 Mcg = 1000 Iu)] 50 mcg PO DAILY 03/12/22 [History] Ezetimibe [Zetia] 10 mg PO DAILY 03/12/22 [History] Losartan/Hydrochlorothiazide [Losartan-Hctz 100-12.5 mg Tab] 1 tab PO DAILY 03/12/22 [History] hydrALAZINE HCL 75 mg PO BID 03/12/22 [History] Clopidogrel [Plavix] 75 mg PO DAILY #90 tab 03/14/22 [Rx] Semaglutide [Ozempic] 0.25 mg SQ MO 04/08/22 [History] Follow up Appointment(s)/Referral(s): Marsha Monroe DO [STAFF PHYSICIAN] - 2 Weeks Patient Instructions/Handouts: Carotid Artery Stent Placement (DC) Activity/Diet/Wound Care/Special Instructions: No strenuous activity or heavy lifting greater than 10 pounds. May shower tomorrow but no tub bathing or soaking. Watch incision site for infection including redness, drainage, or temperature greater than 100.4. If you notice he symptoms please call office Pending Studies Pending Results: No results pending.
[2022-05-25 09:47] LABS: Calcium 8.4 mg/dL (8.4-10.2); Potassium 4.1 mmol/L (3.5-5.1)
[2022-05-25 09:52] LABS: Basophils # (A) 0.1 k/uL (0-0.2); Basophils % (A) 1 %; Eosinophils # (A) 0.2 k/uL (0-0.7); Eosinophils % (A) 3 %; HCT 32.9 % (39.0-53.0); HGB 11.3 gm/dL (13.0-17.5); Lymphocytes # (A) 1.5 k/uL (1.0-4.8); Lymphocytes % (A) 22 %; MCH 29.9 pg (25.0-35.0); MCHC 34.4 g/dL (31.0-37.0); Monocytes # (A) 0.4 k/uL (0-1.0); Monocytes % (A) 6 %; Neutrophils # (A) 4.8 k/uL (1.3-7.7); Neutrophils % (A) 67 %; Platelet Count 148 k/uL (150-450); RBC 3.79 m/uL (4.30-5.90); RDW 12.8 % (11.5-15.5); WBC 7.1 k/uL (3.8-10.6)
--- NOTE | 2022-05-25 09:59 | P.PN ---
Subjective Progress Note Date: 05/25/22 Hospital course: Patient is a very pleasant 71-year-old male with a past medical history of type II hxt-zvqyflo-vyndjzdib diabetes mellitus, chronic kidney disease stage II, hypertension, hyperlipidemia, and CAD status post stenting. He is currently admitted under vascular surgery team for an elective left-sided TCAR. We have been consulted for continued medical management throughout hospitalization. Physical exam: Patient seen and fully evaluated at bedside this morning. He is postoperative day one status post TCAR. Patient reports his neck is a little stiff in his voice is still a little crackly and throat a little dry, but otherwise denies having any complaints or concerns at this time including difficulty swallowing, chest pain, palpitations, shortness of breath, or experiencing any numbness/tingling/pain/swelling in his extremities. Access site right groin showing no signs of hematoma, bruising, bleeding, or drainage. Morning labs reviewed. Normocytic anemia with Hemoglobin stable at 11.3, mild thrombocytopenia with platelet count of 148, and baseline renal function with BUN of 27, creatinine 1.47, and GFR 48. NATTY drain to left lateral neck intact with serosanguineous managing collection chamber. Morning vital signs stable with blood pressure 153/70, heart rate 61, and respiratory rate of 15 with SpO2 of 96% on room air. patient scheduled to receive antihypertensive medications this morning. Medically, patient is stable for discharge once cleared by primary admitting vascular surgery team. Vital signs reviewed and stable. General: Nontoxic, no distress and appears stated age. Derm: Skin warm and dry, normal coloration for ethnicity. Head: Atraumatic, normocephalic and symmetric. Drain remains in place left lateral neck. Eyes: EOMs intact, no lid lag, and anicteric sclera Mouth: no lip lesions, mucus membranes moist Cardiovascular: regular rate and rhythm with normal S1S2, no murmur, positive posterior tibial pulses bilaterally, and cap refill < 2 seconds. Lungs: Respirations even, regular, and unlabored on room air. Lungs CTA bilaterally, no rhonchi, no rales, no wheezing, and no accessory muscle usage. Abdominal: soft, nontender to palpation, no guarding, no appreciable organomegaly Ext: ROM intact. No gross muscle atrophy, no edema, no contractures Neuro: Speech clear, face symmetrical and CN II-XII grossly intact with no noted focal neuro deficits Psych: Alert and oriented to person, place, time, and situation. Appropriate and pleasant affect. Assessment and Plan of Care: Status post left sided transverse carotid artery revascularization with stenting (TCAR) secondary to high-grade left internal carotid artery stenosis -Access site right groin showing no signs of bleeding, erythema, drainage, hematoma, bruising, or swelling -Management per primary admitting vascular surgery team Diabetes mellitus type 2, [id number] with postoperative hyperglycemia, post-op BS 318 -Patient reports preoperative hemoglobin A1c was 7.2 and sugars are typically well controlled. -He was started on ozempic approximately 6 weeks ago and takes metformin -Hold metformin -Last was ozempic was 05/20/22 -Patient placed on glycemic protocol with NovoLog sliding scale. Coronary artery disease -Resume aspirin and Plavix and cardiac medication regimen consisting of amlodipine, atorvastatin, chlorthalidone, ezetimibe, hydralazine, losartan, and metoprolol. Hypertention, controlled -Monitor vital signs and continue daily medication regimen with Norvasc, Losartan-Hctz, metoprolol, hydralazine, and chlorthalidone Dyslipidemia -Continue daily medication regimen with atorvastatin 80 mg daily. -Encourage heart healthy and carb consistent diet. Thank you for allowing us to participate in the care of this pleasant patient. Do not hesitate to contact us with questions. Someone can be reached from the [facility] hospitalist group all hours of the day at [phone] or via [employer]. Andrea Montano NP rendered care for this patient independently, reviewed the findings and plan as documented in the note above. I did not physically speak with or examine the patient on this date. Objective - Vital Signs Vital signs: Vital Signs Temp 98.1 F 05/25/22 04:30 Pulse 61 05/25/22 04:30 Resp 15 05/25/22 04:30 BP 153/70 05/25/22 04:30 Pulse Ox 96 05/25/22 04:30 FiO2 Intake & Output 05/24/22 05/25/22 05/25/22 18:59 06:59 18:59 Intake Total 1440 Output Total 640 300 Balance 800 -300 Weight 84.6 kg Intake: IV 900 Oral 540 Output: Drainage 50 Left Neck 50 Urine 440 250 Estimated Blood Loss 200 Other: Voiding Method Toilet - Labs CBC & Chem 7: 05/25/22 09:04 05/25/22 09:04 Labs: Abnormal Lab Results - Last 24 Hours (Table) 05/24/22 05/24/22 05/24/22 Range/Units 08:44 09:13 13:40 POC Glucose (mg/dL) 203 H 215 H (70-110) mg/dL Hemoglobin A1c 7.4 H (0.0-6.0) % 05/24/22 05/24/22 05/25/22 Range/Units 16:52 20:02 06:14 POC Glucose (mg/dL) 318 H 300 H 173 H (70-110) mg/dL Hemoglobin A1c (0.0-6.0) %
[2022-05-25] MEDS ORDERED: BENZOCAINE/MENTHOL LOZENG 1 EACH LOZENGE MUCOUS MEM SCH (10:00)
== END 2022-05-25 10:59 | disposition home or self-care (01) | DRG 36 ==
LOC: 2ORMAIN 05-24 08:18 → 3SCARD 05-24 15:21
PROVIDERS: ADMIT Surgery; ATTEND Surgery
PROC: 037L3DZ Dilation of Left Internal Carotid Artery with Intraluminal Device, Percutaneous Approach (ICD-10-PCS; principal; 2022-05-24 10:00)
DX: I65.22 Occlusion and stenosis of left carotid artery (principal); E78.5 Hyperlipidemia, unspecified; E11.65 Type 2 diabetes mellitus with hyperglycemia; I25.10 Atherosclerotic heart disease of native coronary artery without angina pectoris; M54.2 Cervicalgia; E11.22 Type 2 diabetes mellitus with diabetic chronic kidney disease; N18.2 Chronic kidney disease, stage 2 (mild); I12.9 Hypertensive chronic kidney disease with stage 1 through stage 4 chronic kidney disease, or unspecified chronic kidney disease; Z79.82 Long term (current) use of aspirin; Z79.02 Long term (current) use of antithrombotics/antiplatelets; Z79.84 Long term (current) use of oral hypoglycemic drugs; Z79.899 Other long term (current) drug therapy; Z95.5 Presence of coronary angioplasty implant and graft; Z87.891 Personal history of nicotine dependence; Z82.49 Family history of ischemic heart disease and other diseases of the circulatory system
CPT/HCPCS: 37215; 80048; 83036; 85025; 86850; 86900; 86901

== ENCOUNTER → 2022-05-15 | Outpatient (CLI) | payer MEDICARE ==
[2022-05-15 19:18] LABS: Anion Gap 13.3 mmol/L (10.00-18.00); Blood Urea Nitrogen 26.9 mg/dL (9.0-27.0); Carbon Dioxide 24.6 mmol/L (20.0-27.5); Non-African American GFR(CKD) 45.7 (60.0-200.0); Potassium 4.2 mmol/L (3.5-5.5)
== END | disposition home or self-care (01) ==
LOC: LABWHC1 11:18
PROVIDERS: ATTEND Nurse Practitioner Adult Health
DX: I10 Essential (primary) hypertension (principal)
CPT/HCPCS: 36415; 80051; 82565; 84520

== ENCOUNTER → 2022-11-05 | Outpatient (CLI) | payer MEDICARE ==
[2022-11-05 20:17] LABS: ALT 26 U/L (10-49); AST 19 U/L (14-35); Albumin 4.7 d/dL (3.8-4.9); Albumin/Globulin Ratio 1.88 Ratio (1.60-3.17); Alkaline Phosphatase 90 U/L (41-126); Blood Urea Nitrogen 24.6 mg/dL (9.0-27.0); Carbon Dioxide 23.7 mmol/L (21.6-31.8); Chloride 98 mmol/L (96-109); Chol/HDL Ratio 4.36 Ratio; Globulin 2.5 d/dL (1.6-3.3); Glucose 148 mg/dL (70-110); LDL Cholesterol,Calculated 58.1 mg/dL (0.0-131.0); Potassium 4.3 mmol/L (3.5-5.5); Sodium 139 mmol/L (135-145); Total Bilirubin 0.5 mg/dL (0.3-1.2); Total Protein 7.2 d/dL (6.2-8.2)
== END | disposition home or self-care (01) ==
LOC: LABWHC1 10:03
PROVIDERS: ATTEND Internal Medicine Interventional Cardiology
DX: E78.2 Mixed hyperlipidemia (principal)
CPT/HCPCS: 36415; 80053; 80061

== ENCOUNTER → 2023-02-27 | Outpatient (CLI) | payer MEDICARE ==
[2023-02-27 14:23] LABS: African American GFR (CKD) 49 (>60 ml/min/1.73 sqM); Blood Urea Nitrogen 29 mg/dL (9-20); Non-African American GFR(CKD) 42 (>60 ml/min/1.73 sqM)
--- NOTE | 2023-02-27 21:45 | CT ---
EXAMINATION TYPE: CT angio neck DATE OF EXAM: 02/27/2023 HISTORY: Diagnosed with Carotid Stenosis COMPARISON: 02/13/2022 CT DLP: 366.1 mGycm. Automated Exposure Control for Dose Reduction was Utilized. TECHNIQUE: CTA scan of the neck is performed with IV Contrast, patient injected with 65 cc mL of Iso prosper 370, axial images are obtained, coronal and sagittal reformatted images are reviewed. Three-D rec onstructed images are created on an independent workstation and reviewed. Source images are reviewed . FINDINGS: Carotid/Vascular Structures: There is a 3 vessel arch. Common carotid arteries bifurcate into internal and external carotid arteries without significant hollie w limiting stenosis. Within the proximal right internal carotid artery there is a severe area of focal narrowing. Visually this appears very severe with a threadlike appearance although measurement criteria suggests only na rrowing of 71% which is remains severe. Correlate for right side symptoms. Left-sided internal caroti d artery narrowing with atheromatous plaque and calcification is present estimated at 62%. Vertebral arteries are codominant. Internal carotid arteries and vertebral arteries are patent to the skull base. IMPRESSION: 1. Severe right internal carotid artery stenosis. This appears to be at least 71% although visually a ppears greater. 2. More moderate stenosis of 62% left internal carotid artery due to calcified plaque. NASCET criteria was used in interpretation of this exam?
== END | disposition home or self-care (01) ==
LOC: RADCTMAIN 13:27
PROVIDERS: ATTEND Surgery
DX: I65.23 Occlusion and stenosis of bilateral carotid arteries (principal)
CPT/HCPCS: 82565; 84520; 70498; 36415; Q9967

== ENCOUNTER → 2023-05-01 | Outpatient (CLI) | payer MEDICARE ==
[2023-05-01 21:07] LABS: ALT 26 U/L (10-49); AST 17 U/L (14-35); Chol/HDL Ratio 3.47 Ratio; LDL Cholesterol,Calculated 58.5 mg/dL (0.0-131.0)
== END | disposition home or self-care (01) ==
LOC: LABWHC1 10:58
PROVIDERS: ATTEND Internal Medicine Interventional Cardiology
DX: E78.2 Mixed hyperlipidemia (principal)
CPT/HCPCS: 36415; 80061; 84450; 84460

== ENCOUNTER 2023-05-14 09:47 | Inpatient (IN) | payer MEDICARE ==
[~2023-05-14 09:47] MED LIST changes: -ASPIRIN 325 MG TAB PO STA; +ASPIRIN 81 MG PO PRN; -ATORVASTATIN 80 MG TAB PO STA; +CLOPIDOGREL 75 MG TAB PO PRN; -HEPARIN SODIUM,PORCINE 10,000 UNIT in SODIUM CHLORIDE 0.9% 1,000 ML IRRIGATION PRN; -HEPARIN SODIUM,PORCINE 2,500 UNIT in SODIUM CHLORIDE 0.9% 250 ML IRRIGATION PRN; +RX INFO: IV CONTRAST WAS GIVEN 1 EACH MISC MISCELLANE PRN; +SODIUM CHLORIDE 0.9% 1,000 ML in EMPTY BAG 1 BAG IV ONE; -SODIUM CHLORIDE 0.9% 1,000 ML in EMPTY BAG 1 BAG IV SCH; +ceFAZolin 2 GM in SODIUM CHLORIDE 0.9% 500 ML 500 ML IRRIGATION PRN
[2023-05-14] MEDS ORDERED: SODIUM CHLORIDE 0.9% 1,000 ML IV ONE (09:52)
[2023-05-14 10:11] LABS: Glucose,Whole Blood 181 mg/dL (70-110)
[2023-05-14 10:18] LABS: Basophils # (A) 0.1 k/uL (0-0.2); Basophils % (A) 1 %; Eosinophils # (A) 0.2 k/uL (0-0.7); Eosinophils % (A) 2 %; HCT 40.7 % (39.0-53.0); HGB 14.2 gm/dL (13.0-17.5); Lymphocytes % (A) 26 %; MCH 29.6 pg (25.0-35.0); MCHC 34.8 g/dL (31.0-37.0); MCV 85.1 fL (80.0-100.0); Monocytes # (A) 0.5 k/uL (0-1.0); Monocytes % (A) 6 %; Neutrophils # (A) 4.9 k/uL (1.3-7.7); Neutrophils % (A) 62 %; Platelet Count 201 k/uL (150-450); RBC 4.78 m/uL (4.30-5.90); RDW 13.2 % (11.5-15.5); WBC 7.9 k/uL (3.8-10.6)
[2023-05-14 11:17] LABS: African American GFR (CKD) 50 (>60 ml/min/1.73 sqM); Anion Gap 17 mmol/L; Blood Urea Nitrogen 32 mg/dL (9-20); Calcium 10.1 mg/dL (8.4-10.2); Carbon Dioxide 25 mmol/L (22-30); Chloride 97 mmol/L (98-107); Glucose 193 mg/dL (74-99); Non-African American GFR(CKD) 43 (>60 ml/min/1.73 sqM); Potassium 3.8 mmol/L (3.5-5.1); Sodium 139 mmol/L (137-145)
[2023-05-14] MEDS ORDERED: ePHEDrine 50 MG/ML 1 ML VIAL ONE (13:13)
[2023-05-14] MEDS ORDERED: GLYCOPYRROLATE 0.2 MG/ML 2 ML VIAL ONE (13:13)
[2023-05-14] MEDS ORDERED: HEPARIN SODIUM,PORCINE 10,000 UNIT/ML 1 ML VIAL ONE (13:13)
[2023-05-14] MEDS ORDERED: MIDAZOLAM 2 MG/2 ML VIAL ONE (13:13)
[2023-05-14] MEDS ORDERED: fentaNYL (PF) 50 MCG/ML 2 ML AMP ONE (13:13)
[2023-05-14] MEDS ORDERED: PROTAMINE SULFATE 10 MG/ML 5 ML VIAL ONE (13:13)
[2023-05-14] MEDS ORDERED: DEXMEDETOMIDINE 200 MCG/2 ML VIAL IV ONE (13:13)
[2023-05-14] MEDS ORDERED: LIDOCAINE 1% INJ 10MG/ML (20 ML MDV) ONE (13:22)
[2023-05-14] MEDS ORDERED: LIDOCAINE 1% INJ 10MG/ML (30 ML VIAL-PF) SQ ONE (13:44)
[2023-05-14] MEDS ORDERED: SODIUM CHLORIDE 0.9% 500 ML 500 ML with HEPARIN SODIUM,PORCINE (1 ML) 5,000 UNIT IV ONE ×2 (13:50)
[2023-05-14] MEDS ORDERED: THROMBIN (BOVINE) 5,000 UNIT VIAL MISCELLANE ONE (13:50)
[2023-05-14] MEDS ORDERED: GELATIN SPONGE,ABSORB (SMALL) 1 EACH SPONGE MISCELLANE ONE (13:50)
[2023-05-14] MEDS ORDERED: ceFAZolin 2 GM in SODIUM CHLORIDE 0.9% 500 ML 500 ML IRRIGATION ONE (13:50)
[2023-05-14] MEDS ORDERED: IOPAMIDOL-250 100ML BTL INTRAARTER ONE (14:33)
--- NOTE | 2023-05-14 15:09 | P.HPIHPCON ---
History of Present Illness H&P Date: 05/14/23 Patient is a 72-year-old male with high-grade right internal carotid artery stenosis on previous imaging, previously has undergone a left trans-carotid artery revascularization and stenting for symptomatic carotid stenosis. Due to this high-grade stenosis on the right, he is recommended to undergo intervention and after full discussion regarding risks and benefits of each open and transferred artery as well as transfemoral stenting elected to go forward with trans-carotid artery revascularization stent. He seemingly understood the plan and is which proceed. He has been on his Plavix and aspirin Consent for Procedure: I have explained the operation/procedure to the patient, including the risks, benefits, side effects, alternative therapies (including not receiving the proposed treatment or service), the likelihood of the patient achieving his/her goals, and potential recuperation problems for the procedure/sedation/analgesia, as well as any blood products, if indicated. I also explained to the patient the risks, benefits and side effects of the alternatives, as well as the risks related to not receiving the proposed procedure, care, treatment, or services. Past Medical History Past Medical History: Coronary Artery Disease (CAD), Diabetes Mellitus, Hyperlipidemia, Hypertension Additional Past Medical History / Comment(s): Carotid artery stenosis History of Any Multi-Drug Resistant Organisms: None Reported Past Surgical History: Heart Catheterization With Stent, Hernia Repair Additional Past Surgical History / Comment(s): Three cardiac stents, hernia repair in 2009, left TCAR 05/24/22 Past Anesthesia/Blood Transfusion Reactions: No Reported Reaction Date of Last Stent Placement:: 03-14-22 Smoking Status: Former smoker - Past Family History Father Family Medical History: Cancer Additional Family Medical History / Comment(s): Esophogeal cancer Mother Family Medical History: Diabetes Mellitus, Myocardial Infarction ([place]) Medications and Allergies Home Medications Medication Instructions Recorded Confirmed Type Aspirin 81 mg PO DAILY chew 07/19/17 05/14/23 Rx Nitroglycerin Sl Tabs [Nitrostat] 0.4 mg SUBLINGUAL Q5M PRN #25 tab 07/19/17 05/14/23 Rx amLODIPine [Norvasc] 10 mg PO DAILY #30 tab 07/19/17 05/08/23 Rx Metoprolol Succinate [Toprol XL] 50 mg PO DAILY 07/09/18 05/08/23 History metFORMIN HCL [Glucophage] 1,000 mg PO DAILY 07/09/18 05/08/23 History Atorvastatin [Lipitor] 80 mg PO DAILY 03/12/22 05/14/23 History Chlorthalidone 50 mg PO DAILY 03/12/22 05/08/23 History Ezetimibe [Zetia] 10 mg PO DAILY 03/12/22 05/14/23 History Losartan/Hydrochlorothiazide 1 tab PO DAILY 03/12/22 05/08/23 History [Losartan-Hctz 100-12.5 mg Tab] hydrALAZINE HCL 75 mg PO BID 03/12/22 05/08/23 History Clopidogrel [Plavix] 75 mg PO DAILY #90 tab 03/14/22 05/14/23 Rx Semaglutide [Ozempic] 0.5 mg SQ MO 04/08/22 05/14/23 History Allergies Allergy/AdvReac Type Severity Reaction Status Date / Time No Known Allergies Allergy Verified 05/14/23 09:58 Surgical - Exam Vital Signs Temp Pulse Resp BP Pulse Ox 98 F 95 16 200/89 99 05/14/23 10:09 05/14/23 10:09 05/14/23 10:09 05/14/23 10:09 05/14/23 10:09 Gen. is a pleasant cooperative male in no acute distress. Heart appears regular. Lungs are clear. Abdomen is soft. Cranial nerves II through XII grossly intact without evidence of focal deficits Results - Labs 05/14/23 09:55 05/14/23 09:55 Abnormal Lab Results - Last 24 Hours (Table) 05/14/23 05/14/23 Range/Units 09:55 10:07 Chloride 97 L (98-107) mmol/L BUN 32 H (9-20) mg/dL Creatinine 1.61 H (0.66-1.25) mg/dL Glucose 193 H (74-99) mg/dL POC Glucose (mg/dL) 181 H (70-110) mg/dL Diabetes panel 05/14/23 Range/Units 09:55 Sodium 139 (137-145) mmol/L Potassium 3.8 (3.5-5.1) mmol/L Chloride 97 L (98-107) mmol/L Carbon Dioxide 25 (22-30) mmol/L BUN 32 H (9-20) mg/dL Creatinine 1.61 H (0.66-1.25) mg/dL Glucose 193 H (74-99) mg/dL Calcium 10.1 (8.4-10.2) mg/dL Calcium panel 05/14/23 Range/Units 09:55 Calcium 10.1 (8.4-10.2) mg/dL Pituitary panel 05/14/23 Range/Units 09:55 Sodium 139 (137-145) mmol/L Potassium 3.8 (3.5-5.1) mmol/L Chloride 97 L (98-107) mmol/L Carbon Dioxide 25 (22-30) mmol/L BUN 32 H (9-20) mg/dL Creatinine 1.61 H (0.66-1.25) mg/dL Glucose 193 H (74-99) mg/dL Calcium 10.1 (8.4-10.2) mg/dL Adrenal panel 05/14/23 Range/Units 09:55 Sodium 139 (137-145) mmol/L Potassium 3.8 (3.5-5.1) mmol/L Chloride 97 L (98-107) mmol/L Carbon Dioxide 25 (22-30) mmol/L BUN 32 H (9-20) mg/dL Creatinine 1.61 H (0.66-1.25) mg/dL Glucose 193 H (74-99) mg/dL Calcium 10.1 (8.4-10.2) mg/dL Assessment and Plan Assessment: High-grade right internal carotid artery stenosis, asymptomatic Plan: Plan for trans-carotid artery revascularization and stenting.
[2023-05-14 15:18] LABS: Glucose,Whole Blood 190 mg/dL (70-110)
[2023-05-14] MEDS ORDERED: MAG HYDROX/AL HYDROX/SIMETH 30 ML CUP PO PRN (15:37)
[2023-05-14] MEDS ORDERED: ATROPINE SULFATE 0.1 MG/ML 10ML SYRINGE IV PRN (15:37)
[2023-05-14] MEDS ORDERED: PHENYLEPHRINE 40 MG in SODIUM CHLORIDE 0.9% 250 ML IV SCH (16:15)
[2023-05-14] MEDS: PSEUDOEPHEDRINE 30 MG TAB PO SCH ×2 (16:26→23:28)
[2023-05-14] MEDS ORDERED: DEXTROSE 50% SYRINGE 50 ML IVP PRN ×2 (17:17)
[2023-05-14] MEDS: INSULIN ASPART (NovoLOG) 100 UNIT/ML VIAL SQ SCH ×2 (18:30→20:40)
--- NOTE | 2023-05-14 19:15 | P.ANPRN ---
Procedure Note - Anesthesia - Invasive Line Left Arterial Line Time Out Performed: Yes Date of Procedure: 05/14/23 Time of Procedure: 11:39 Location of Patient: PreOp Preparation: Sterile Prep, Sterile Dressing Arterial Line Location: Radial Ultrasound Used: No Purpose - Visualization and Identification of Vasculature: No Image Stored and Saved: No Narrative: Central line placement per sterile protocol utilized.
[2023-05-14 19:42] LABS: Glucose,Whole Blood 162 mg/dL (70-110)
--- NOTE | 2023-05-14 20:22 | P.CONS ---
History of Present Illness - Reason for Consult Consult date: 05/14/23 - History of Present Illness Patient is a 72-year-old man with a PMH of carotid stenosis status post left carotid artery revascularization, CAD, type II DM, hypertension, hyperlipidemia who was admitted for a scheduled right carotid artery revascularization and stenting. The patient underwent the procedure earlier today and was seen postoperatively. He reported excellent control his pain at the time of interview, rated at a 0 out of 10. He also been added any additional complaints. Denied experiencing neck pain, chest discomfort, shortness of breath, sore throat, fever, chills, cough, nausea, vomiting. Reports compliance with medications at home. Laboratory evaluation was reviewed with BUN 32, creatinine 1.61 (at baseline) and glucose 193. Review of systems: Pertinent positives and negatives as discussed in HPI, a complete review of systems was performed and all other systems are negative. Physical examination: Vital signs reviewed General: non toxic, no distress, appears at stated age, normal weight Derm: no unusual rashes/lesions, warm Head: atraumatic, normocephalic, symmetric Eyes: EOMI, no lid lag, anicteric sclera, pupils equal round reactive to light ENT: Nose and ears atraumatic Neck: Right-sided dressing clean and dry with drain in place, trachea midline Mouth: no lip lesion, mucus membranes moist Cardiovascular: S1S2 reg, no murmur, positive dorsalis pedis pulse bilateral, no edema Lungs: CTA bilateral, no rhonchi, no rales, no accessory muscle use Abdominal: soft, nontender to palpation, no guarding Ext: muscle strength 5 out of 5 in all 4 extremities grossly, no gross muscle atrophy, no contractures, Neuro: CN II-XI grossly intact, no gross focal neuro deficits Psych: Alert, oriented, appropriate affect Assessment: Chronic conditions: Type II DM, hypertension hyperlipidemia, CAD Status post right carotid artery revascularization and stenting Data Review: Laboratory evaluation was reviewed with BUN 32, creatinine 1.61 (at baseline) and glucose 193. Plan: Continue with insulin sliding scale and blood glucose monitoring Defer resumption of aspirin and Plavix to the primary surgery service Resume remaining home medications including Zetia, Lipitor, amlodipine, Toprol, valsartan, hydrochlorothiazide, and chlorthalidone We appreciate this opportunity to be involved in this patient's care. We will follow the patient with you. For any further questions, please not hesitate to contact the [facility] inpatient team. Past Medical History Past Medical History: Coronary Artery Disease (CAD), Diabetes Mellitus, Hyperlipidemia, Hypertension Additional Past Medical History / Comment(s): Carotid artery stenosis History of Any Multi-Drug Resistant Organisms: None Reported Past Surgical History: Heart Catheterization With Stent, Hernia Repair Additional Past Surgical History / Comment(s): Three cardiac stents, hernia repair in 2009, left TCAR 05/24/22 Past Anesthesia/Blood Transfusion Reactions: No Reported Reaction Date of Last Stent Placement:: 03-14-22 Smoking Status: Former smoker - Past Family History Father Family Medical History: Cancer Additional Family Medical History / Comment(s): Esophogeal cancer Mother Family Medical History: Diabetes Mellitus, Myocardial Infarction (NH) Medications and Allergies Home Medications Medication Instructions Recorded Confirmed Type Aspirin 81 mg PO DAILY chew 07/19/17 05/14/23 Rx Nitroglycerin Sl Tabs [Nitrostat] 0.4 mg SUBLINGUAL Q5M PRN #25 tab 07/19/17 05/14/23 Rx amLODIPine [Norvasc] 10 mg PO DAILY #30 tab 07/19/17 05/08/23 Rx Metoprolol Succinate [Toprol XL] 50 mg PO DAILY 07/09/18 05/08/23 History metFORMIN HCL [Glucophage] 1,000 mg PO DAILY 07/09/18 05/08/23 History Atorvastatin [Lipitor] 80 mg PO DAILY 03/12/22 05/14/23 History Chlorthalidone 50 mg PO DAILY 03/12/22 05/08/23 History Ezetimibe [Zetia] 10 mg PO DAILY 03/12/22 05/14/23 History Losartan/Hydrochlorothiazide 1 tab PO DAILY 03/12/22 05/08/23 History [Losartan-Hctz 100-12.5 mg Tab] hydrALAZINE HCL 75 mg PO BID 03/12/22 05/08/23 History Clopidogrel [Plavix] 75 mg PO DAILY #90 tab 03/14/22 05/14/23 Rx Semaglutide [Ozempic] 0.5 mg SQ MO 04/08/22 05/14/23 History Allergies Allergy/AdvReac Type Severity Reaction Status Date / Time No Known Allergies Allergy Verified 05/14/23 09:58 Physical Exam Vitals: Vital Signs Temp Pulse Pulse Pulse Resp BP BP 05/14/23 18:22 98 F 65 16 05/14/23 17:30 73 16 05/14/23 17:00 57 L 16 05/14/23 16:46 52 L 16 05/14/23 16:30 64 16 05/14/23 16:15 61 16 05/14/23 16:00 70 16 05/14/23 15:45 58 L 16 05/14/23 15:35 58 L 16 05/14/23 15:20 65 16 05/14/23 15:04 98.0 F 67 16 05/14/23 10:17 98 F 95 16 200/93 05/14/23 10:09 98 F 95 16 200/89 BP BP Pulse Ox 05/14/23 18:22 157/87 97 05/14/23 17:30 136/61 100 05/14/23 17:00 131/60 100 05/14/23 16:46 145/64 99 05/14/23 16:30 141/65 97 05/14/23 16:15 118/55 97 05/14/23 16:00 113/57 95 05/14/23 15:45 114/58 96 05/14/23 15:35 124/60 97 05/14/23 15:20 127/55 91 L 05/14/23 15:04 138/63 94 L 05/14/23 10:17 99 05/14/23 10:09 200/91 99 Intake and Output 05/14/23 05/14/23 05/14/23 06:59 14:59 22:59 Intake Total 102 400 Balance 102 400 Intake: IV 102 400 Other: Weight 81.7 kg Results CBC & Chem 7: 05/14/23 09:55 05/14/23 09:55 Labs: Abnormal Lab Results - Last 24 Hours (Table) 05/14/23 05/14/23 05/14/23 Range/Units 09:55 10:07 15:15 Chloride 97 L (98-107) mmol/L BUN 32 H (9-20) mg/dL Creatinine 1.61 H (0.66-1.25) mg/dL Glucose 193 H (74-99) mg/dL POC Glucose (mg/dL) 181 H 190 H (70-110) mg/dL 05/14/23 Range/Units 19:40 Chloride (98-107) mmol/L BUN (9-20) mg/dL Creatinine (0.66-1.25) mg/dL Glucose (74-99) mg/dL POC Glucose (mg/dL) 162 H (70-110) mg/dL
[2023-05-14] MEDS: hydrALAZINE HCL 25 MG TAB PO SCH (20:40)
[2023-05-14] MEDS ORDERED: ATORVASTATIN 40 MG TAB PO SCH (21:00)
[2023-05-15] MEDS ORDERED: ACETAMINOPHEN TAB 325 MG TAB PO STA (03:39)
[2023-05-15 06:08] LABS: Glucose,Whole Blood 137 mg/dL (70-110)
[2023-05-15] MEDS: INSULIN ASPART (NovoLOG) 100 UNIT/ML VIAL SQ SCH (06:10)
[2023-05-15] MEDS: PSEUDOEPHEDRINE 30 MG TAB PO SCH (06:20)
[2023-05-15 07:56] LABS: Basophils # (A) 0.1 k/uL (0-0.2); Basophils % (A) 1 %; Eosinophils # (A) 0.1 k/uL (0-0.7); Eosinophils % (A) 2 %; HCT 32.4 % (39.0-53.0); HGB 11.4 gm/dL (13.0-17.5); Lymphocytes # (A) 1.7 k/uL (1.0-4.8); Lymphocytes % (A) 25 %; MCH 30.3 pg (25.0-35.0); MCHC 35.2 g/dL (31.0-37.0); MCV 86.1 fL (80.0-100.0); Mean Platelet Volume 7.6; Monocytes # (A) 0.5 k/uL (0-1.0); Monocytes % (A) 7 %; Neutrophils # (A) 4.5 k/uL (1.3-7.7); Neutrophils % (A) 64 %; Platelet Count 158 k/uL (150-450); RBC 3.77 m/uL (4.30-5.90); RDW 13.1 % (11.5-15.5); WBC 7.1 k/uL (3.8-10.6)
[2023-05-15 08:26] LABS: African American GFR (CKD) 58 (>60 ml/min/1.73 sqM); Anion Gap 9 mmol/L; Blood Urea Nitrogen 24 mg/dL (9-20); Carbon Dioxide 25 mmol/L (22-30); Chloride 104 mmol/L (98-107); Glucose 128 mg/dL (74-99); Non-African American GFR(CKD) 50 (>60 ml/min/1.73 sqM); Potassium 3.8 mmol/L (3.5-5.1); Sodium 138 mmol/L (137-145)
[2023-05-15] MEDS: hydrALAZINE HCL 25 MG TAB PO SCH (08:51)
[2023-05-15] MEDS ORDERED: amLODIPine 10 MG TAB PO SCH (09:00)
[2023-05-15] MEDS ORDERED: ATORVASTATIN 80 MG TAB PO SCH (09:00)
[2023-05-15] MEDS ORDERED: LOSARTAN 50 MG TAB PO SCH (09:00)
[2023-05-15] MEDS ORDERED: CLOPIDOGREL 75 MG TAB PO SCH (09:00)
[2023-05-15] MEDS ORDERED: METOPROLOL SUCCINATE (ER) 50 MG TAB.ER.24H PO SCH (09:00)
[2023-05-15] MEDS ORDERED: hydroCHLOROthiazide 12.5 MG CAP PO SCH (09:00)
[2023-05-15] MEDS ORDERED: EZETIMIBE 10 MG TAB PO SCH (09:00)
[2023-05-15] MEDS ORDERED: CHLORTHALIDONE 25 MG TAB PO SCH (09:00)
[2023-05-15] MEDS ORDERED: ASPIRIN 81 MG PO SCH (09:00)
--- NOTE | 2023-05-15 09:35 | P.OP ---
Date of Procedure: 05/14/23 Description of Procedure: Preoperative diagnosis: Asymptomatic high-grade right internal carotid artery stenosis Postoperative diagnosis: Same Procedure: RightTranscarotid artery revascularization with stenting. Right common femoral vein central venous catheter placement under ultrasound guidance Surgeon: Marsha Monroe DO Bail Attacher: Dawna Anesthesia: Conscious sedation Complications: None Condition: Stable Flow reversal time: 11 minutes Lesion length: 3.1 cm Indication for procedure: Patient is a 72-year-old male with high-grade right internal carotid artery stenosis who presents today transverse artery revascularization and stenting. He has been taking his dual antiplatelet therapy without issues. Operative narrative: After written and informed consent was obtained the patient all risks benefits and competitions were described the patient was brought to the Managing Principal and laid in a supine position. The area of the neck and groins were prepped and draped in usual sterile fashion after appropriate anesthetic was performed per the anesthesiologist. A timeout was performed in normal fashion and antibiotics were administered prior to incision. Utilizing ultrasound the right common carotid artery was located and a transverse incision was created overlying this area after proper anesthetization. Dissection was carried between the sternocleidomastoid musculature down to the carotid sheath. The sheath was then incised and the common carotid artery was located and dissected free in a circumferential manner and controlled with umbilical tape. Once controlled, attention was placed down to the common femoral vein and utilizing ultrasound the vein was cannulated and the 8-Khmer sheath was placed in normal fashion. Attention was then placed back to the carotid artery and the patient was administered heparin and followed with ACTs and redosed as needed for ACT above 250. A pursestring suture was then placed at the common carotid artery with 5-0 Prolene and utilizing a micropuncture needle the common carotid artery was accessed and wire was placed followed by a 4-Khmer sheath. Carotid angiogram was then obtained demonstrating significant stenosis in the internal carotid artery. it measured 94% on imaging. Stiff wire was then placed followed by the 8 Khmer [place] sheath. Flow reversal was then established with the enroute PIG MACHINE CRANE OPERATOR system after patient's blood pressure was increased to above 160, heart rate above 60 and ACT above 250. 014 wire was then placed across the lesion followed by a 5.5 x 30 mm Sanon balloon and balloon angioplasty was performed followed by an 10 x 40 mm [place] stent. Postdilatation was performed with a 6 x 30 balloon due to residual 30% stenosis and final angiogram was obtained demonstrating complete resolution of the stenosis. All guidewires and catheters were removed and the sheath was removed and the arteriotomy was secured with the previously placed pursestring suture. Hemostasis was assured with Gelfoam and thrombin. The area was irrigated and closed. The platysma was closed with 3-0 Vicryl. The skin was closed with running 4-0 Monocryl in subcuticular fashion. A drain was left in place. The femoral sheath was also removed and pressure was held for hemostasis. The patient all procedure well and was moving all extremities and following commands. The patient was then sent to PACU for recovery.
[2023-05-15 09:51] VITALS: BP 159/71; PULSE 60; RESP 16; TEMP 97.6
--- NOTE | 2023-05-15 09:56 | P.DS ---
Providers Date of admission: 05/14/23 09:47 Expected date of discharge: 05/15/23 Attending physician: Marsha Monroe DO Consults: 05/14/23 15:37 Consult Physician Routine Consulting Provider: Corina Ely Consult Reason/Comments: post carotid stent, med mgmnt Do you want consulting provider notified?: Yes Primary care physician: Ollie Hubbard [facility] Course: 72-year-old gentleman with a history of high-grade right internal carotid artery stenosis on previous imaging who had previously undergone left trans-carotid artery revascularization and stenting for symptomatic carotid stenosis came in for recommended intervention. He is postop day #1 for right trans-carotid artery revascularization and stenting. Postoperatively he did have some lower blood pressures and was started on Sudafed. Blood pressures have been stable and this morning's blood pressure was 59/71 heart rate 60 respiratory rate 16 and oxygen saturation 96% on room air. He denies any focal deficits. Pain is 0 out of 10. He is voiding without difficulty. No difficulty with swallowing and tolerating his diet. NATTY drain in place with approximately 5 mL of serosanguineous output. Exam General appearance: The patient is alert, oriented, appears in no acute distress. HET: Head is normocephalic and atraumatic. Pupils are equal and reactive. Neck: Supple. Right NATTY drain, removed. Incision well approximated. Heart: Regular. Lungs: Equal expansion, normal respiratory effort. Abdomen: Soft, nontender, nondistended. Extremities: Normal skin color and turgor. Right groin without any bleeding, dressing clean dry and intact. Palpable femoral. Neurological: No focal deficits. Strength and sensation are grossly intact. Assessment 1. High-grade right internal carotid artery stenosis status post op day #1 for trans-carotid revascularization with stenting 2. History of left trans-carotid artery revascularization and stenting 3. Diabetes mellitus 4. Coronary artery disease 5. Hypertension Plan Internal medicine consulted for medical management. Home meds were resumed. NATTY drain discontinued. Patient encouraged to ambulate. Cleared for discharge. Discussed home discharge instructions including no driving until cleared by vascular surgery, may shower tomorrow but no tub bathing until cleared by vascular surgery. No heavy lifting or strenuous activity. Patient verbalizes understanding. Patient also instructed to hold blood pressure medications for systolic blood pressure 120 mmhg or less. Patient to follow-up with his PCP Dr. Lu within the week and follow-up with Dr. Monroe next week. The impression and plan of care has been dictated as directed. Dr. Byrne I performed a history and examination of this patient, discussed the same with the dictator. I agree with the dictator's note ,documented as a scribe. Any additional findings or plans will be noted. Procedures: Right Trans-carotid artery revascularization with stenting Patient Condition at Discharge: Stable Plan - Discharge Summary Discharge Rx Participant: No New Discharge Prescriptions: Continue amLODIPine [Norvasc] 10 mg PO DAILY #30 tab Aspirin 81 mg PO DAILY chew Nitroglycerin Sl Tabs [Nitrostat] 0.4 mg SUBLINGUAL Q5M PRN #25 tab PRN Reason: Chest Pain Metoprolol Succinate [Toprol XL] 50 mg PO DAILY metFORMIN HCL [Glucophage] 1,000 mg PO DAILY Losartan/Hydrochlorothiazide [Losartan-Hctz 100-12.5 mg Tab] 1 tab PO DAILY Chlorthalidone 50 mg PO DAILY hydrALAZINE HCL 75 mg PO BID Atorvastatin [Lipitor] 80 mg PO DAILY Clopidogrel [Plavix] 75 mg PO DAILY #90 tab Ezetimibe [Zetia] 10 mg PO DAILY Semaglutide [Ozempic] 0.5 mg SQ MO Discharge Medication List Aspirin 81 mg PO DAILY chew 07/19/17 [Rx] Nitroglycerin Sl Tabs [Nitrostat] 0.4 mg SUBLINGUAL Q5M PRN #25 tab 07/19/17 [Rx] amLODIPine [Norvasc] 10 mg PO DAILY #30 tab 07/19/17 [Rx] Metoprolol Succinate [Toprol XL] 50 mg PO DAILY 07/09/18 [History] metFORMIN HCL [Glucophage] 1,000 mg PO DAILY 07/09/18 [History] Atorvastatin [Lipitor] 80 mg PO DAILY 03/12/22 [History] Chlorthalidone 50 mg PO DAILY 03/12/22 [History] Ezetimibe [Zetia] 10 mg PO DAILY 03/12/22 [History] Losartan/Hydrochlorothiazide [Losartan-Hctz 100-12.5 mg Tab] 1 tab PO DAILY 03/12/22 [History] hydrALAZINE HCL 75 mg PO BID 03/12/22 [History] Clopidogrel [Plavix] 75 mg PO DAILY #90 tab 03/14/22 [Rx] Semaglutide [Ozempic] 0.5 mg SQ MO 04/08/22 [History] Follow up Appointment(s)/Referral(s): Ollie Lu MD [Primary Care Provider] - 3 Days Marsha Monroe DO [STAFF PHYSICIAN] - 1 Week Activity/Diet/Wound Care/Special Instructions: No driving L cleared by vascular surgeon Avoid heavy lifting greater than 10 lbs , pushing, pulling, straining ok to shower tomorrow but no baths, pools, soaking in tubs for two weeks signs of infection ie: fever, rash, drainage from puncture site, swelling contact doctor or return to ER immediately. Heavy bleeding from puncture site apply firm direct pressure and return to ER. Do not attempt to drive self. low sodium/low fat diet Discharge Disposition: HOME SELF-CARE
--- NOTE | 2023-05-15 11:39 | P.PN ---
Subjective Progress Note Date: 05/15/23 Patient is a 72-year-old man with a PMH of carotid stenosis status post left carotid artery revascularization, CAD, type II DM, hypertension, hyperlipidemia who was admitted for a scheduled right carotid artery revascularization and stenting. The patient underwent the procedure earlier today and was seen postoperatively. He reported excellent control his pain at the time of interview, rated at a 0 out of 10. He also been added any additional complaints. Denied experiencing neck pain, chest discomfort, shortness of breath, sore throat, fever, chills, cough, nausea, vomiting. Reports compliance with medications at home. Laboratory evaluation was reviewed with BUN 32, creatinine 1.61 (at baseline) and glucose 193. 05/15 Patient was seen and examined. Feeling well. Plans for discharge home today. POC glucose 137-190 over the past 24H. 4 units of Novolog given so far. CBC Hg 11.4. BMP BUN 24, Cr 1.41, glu 128. A1c 7.1. General: non toxic, no distress, appears at stated age, normal weight Derm: no unusual rashes/lesions, warm Head: atraumatic, normocephalic, symmetric Eyes: EOMI, no lid lag, anicteric sclera ENT: Nose and ears atraumatic Neck: trachea midline Cardiovascular: good distal perfusion in all 4 extremities, no edema Lungs: breathing comfortably, no accessory muscle use Ext: muscle strength 5 out of 5 in all 4 extremities grossly, no gross muscle atrophy, no contractures, Neuro: no gross focal neuro deficits Psych: Alert, oriented, appropriate affect Diabetes mellitus with hyperglycemia: ISS. Accuchecks ACHS. Hypoglycemic precautions. Status post right carotid artery revascularization and stenting: Defer resumption of aspirin and Plavix to the primary surgery service Chronic kidney disease stage IIIA: At baseline. Chronic conditions: hypertension hyperlipidemia, CAD: Resume remaining home medications including Zetia, Lipitor, amlodipine, Toprol, valsartan, hydrochlorothiazide, and chlorthalidone Objective - Vital Signs Vital signs: Vital Signs Temp 97.8 F 05/15/23 03:50 Pulse 59 L 05/15/23 03:50 Resp 19 05/15/23 03:50 BP 131/67 05/15/23 03:50 Pulse Ox 95 05/15/23 03:50 FiO2 Intake & Output 05/14/23 05/15/23 05/15/23 18:59 06:59 18:59 Intake Total 502 Balance 502 Weight 81.7 kg Intake: IV 502 Other: Voiding Method Toilet # Voids 3 - Labs CBC & Chem 7: 05/15/23 06:29 05/15/23 06:29 Labs: Abnormal Lab Results - Last 24 Hours (Table) 05/14/23 05/14/23 05/14/23 Range/Units 09:55 10:07 15:15 Chloride 97 L (98-107) mmol/L BUN 32 H (9-20) mg/dL Creatinine 1.61 H (0.66-1.25) mg/dL Glucose 193 H (74-99) mg/dL POC Glucose (mg/dL) 181 H 190 H (70-110) mg/dL 05/14/23 05/15/23 Range/Units 19:40 06:06 Chloride (98-107) mmol/L BUN (9-20) mg/dL Creatinine (0.66-1.25) mg/dL Glucose (74-99) mg/dL POC Glucose (mg/dL) 162 H 137 H (70-110) mg/dL
--- NOTE | 2023-05-17 11:45 | IR ---
EXAMINATION TYPE: IR stent intravas non coronary DATE OF EXAM: 05/14/2023 FLUOROSCOPY right carotid stenosis, 4.1min fluoro, 16.2Gycm2, 148 images provided
== END 2023-05-15 10:54 | disposition home or self-care (01) | DRG 36 ==
LOC: 2ORMAIN 09:47 → 3SCARD 17:58
PROVIDERS: ADMIT Surgery; ATTEND Surgery
PROC: 037K3DZ Dilation of Right Internal Carotid Artery with Intraluminal Device, Percutaneous Approach (ICD-10-PCS; principal; 2023-05-14 12:00)
DX: I65.21 Occlusion and stenosis of right carotid artery (principal); N18.31 Chronic kidney disease, stage 3a; I12.9 Hypertensive chronic kidney disease with stage 1 through stage 4 chronic kidney disease, or unspecified chronic kidney disease; I25.10 Atherosclerotic heart disease of native coronary artery without angina pectoris; E78.5 Hyperlipidemia, unspecified; E11.65 Type 2 diabetes mellitus with hyperglycemia; E11.22 Type 2 diabetes mellitus with diabetic chronic kidney disease; Z79.02 Long term (current) use of antithrombotics/antiplatelets; Z79.82 Long term (current) use of aspirin; Z79.84 Long term (current) use of oral hypoglycemic drugs; Z79.899 Other long term (current) drug therapy; Z83.3 Family history of diabetes mellitus; Z87.891 Personal history of nicotine dependence; Z95.5 Presence of coronary angioplasty implant and graft; Z82.49 Family history of ischemic heart disease and other diseases of the circulatory system; Z79.85 Long-term (current) use of injectable non-insulin antidiabetic drugs; R03.1 Nonspecific low blood-pressure reading
CPT/HCPCS: 37215; 80048; 83036; 85025; 86850; 86900; 86901

== ENCOUNTER → 2023-05-21 | Outpatient (CLI) | payer MEDICARE ==
[2023-05-21 15:09] LABS: Basophils % (A) 1.5 %; Eosinophils # (A) 0.25 X 10*3/uL (0.04-0.35); Eosinophils % (A) 3.8 %; HCT 35.1 % (39.6-50.0); HGB 11.9 g/dL (13.0-17.0); Lymphocytes # (A) 1.86 X 10*3/uL (0.90-5.00); Lymphocytes % (A) 28.1 %; MCH 29.5 pg (27.0-32.0); MCHC 33.9 g/dL (32.0-37.0); MCV 86.9 FL (80.0-97.0); Mean Platelet Volume 10.3 FL (9.5-12.2); Monocytes # (A) 0.63 X 10*3/uL (0.20-1.00); Monocytes % (A) 9.5 %; NRBC Per 100 WBC 0 X 10*3/uL (0.00-0.01); Neutrophils # (A) 3.75 X 10*3/uL (1.80-7.70); Neutrophils % (A) 56.8 %; Platelet Count 194 X 10*3/uL (140-440); RBC 4.04 X 10*6/uL (4.40-5.60); RDW 12.9 % (11.5-14.5); WBC 6.61 X 10*3/uL (4.50-10.00)
[2023-05-21 16:26] LABS: ALT 25 U/L (10-49); AST 16 U/L (14-35); Albumin 4.3 g/dL (3.8-4.9); Albumin/Globulin Ratio 1.87 Ratio (1.60-3.17); Alkaline Phosphatase 83 U/L (41-126); BUN/Creat Ratio 20.88 Ratio (12.00-20.00); Blood Urea Nitrogen 33.4 mg/dL (9.0-27.0); Calcium 10.1 mg/dL (8.7-10.3); Carbon Dioxide 23.1 mmol/L (21.6-31.8); Chloride 101 mmol/L (96-109); Globulin 2.3 g/dL (1.6-3.3); Glucose 158 mg/dL (70-110); Potassium 4.8 mmol/L (3.5-5.5); Sodium 139 mmol/L (135-145); Total Bilirubin 0.5 mg/dL (0.3-1.2); Total Protein 6.6 g/dL (6.2-8.2)
== END | disposition home or self-care (01) ==
LOC: LABWHC1 11:37
PROVIDERS: ATTEND Family Medicine
DX: E11.9 Type 2 diabetes mellitus without complications (principal); I25.10 Atherosclerotic heart disease of native coronary artery without angina pectoris
CPT/HCPCS: 36415; 80053; 83036; 85025

== ENCOUNTER → 2023-11-14 | Outpatient (CLI) | payer MEDICARE ==
[2023-11-14 15:49] LABS: ALT 25 U/L (10-49); AST 21 U/L (14-35); Albumin 4.7 g/dL (3.8-4.9); Albumin/Globulin Ratio 1.96 Ratio (1.60-3.17); Alkaline Phosphatase 91 U/L (41-126); BUN/Creat Ratio 15.95 Ratio (12.00-20.00); Blood Urea Nitrogen 30.3 mg/dL (9.0-27.0); Calcium 10.2 mg/dL (8.7-10.3); Carbon Dioxide 23.2 mmol/L (21.6-31.8); Chloride 102 mmol/L (96-109); Chol/HDL Ratio 4.36 Ratio; Creatine Kinase 93 U/L (35-257); Globulin 2.4 g/dL (1.6-3.3); Glucose 156 mg/dL (70-110); LDL Cholesterol,Calculated 57.7 mg/dL (0.0-131.0); Potassium 4.6 mmol/L (3.5-5.5); Prostate Specific Antigen 2.11 ng/mL (0.000-6.500); Sodium 140 mmol/L (135-145); Total Bilirubin 0.4 mg/dL (0.3-1.2); Total Protein 7.1 g/dL (6.2-8.2)
[2023-11-14 16:40] LABS: Basophils # (A) 0.08 X 10*3/uL (0.00-0.10); Basophils % (A) 1.2 %; Eosinophils # (A) 0.19 X 10*3/uL (0.04-0.35); Eosinophils % (A) 2.9 %; HCT 37.2 % (39.6-50.0); Lymphocytes # (A) 1.72 X 10*3/uL (0.90-5.00); Lymphocytes % (A) 26.2 %; MCH 30.7 pg (27.0-32.0); MCHC 34.9 g/dL (32.0-37.0); MCV 87.7 FL (80.0-97.0); Mean Platelet Volume 9.8 FL (9.5-12.2); Monocytes # (A) 0.56 X 10*3/uL (0.20-1.00); Monocytes % (A) 8.5 %; NRBC Per 100 WBC 0 X 10*3/uL (0.00-0.01); Neutrophils # (A) 4.01 X 10*3/uL (1.80-7.70); Platelet Count 199 X 10*3/uL (140-440); RBC 4.24 X 10*6/uL (4.40-5.60); RDW 12.8 % (11.5-14.5); WBC 6.57 X 10*3/uL (4.50-10.00)
== END | disposition home or self-care (01) ==
LOC: LABWHC1 10:30
PROVIDERS: ATTEND Nurse Practitioner Adult Health
DX: Z12.5 Encounter for screening for malignant neoplasm of prostate (principal); I10 Essential (primary) hypertension; E78.2 Mixed hyperlipidemia; E11.9 Type 2 diabetes mellitus without complications
CPT/HCPCS: 36415; 80053; 80061; 82043; 82550; 82570; 83036; 84153; 85025

== ENCOUNTER → 2023-12-05 | Outpatient (CLI) | payer MEDICARE ==
[2023-12-05 17:35] LABS: ALT 28 U/L (10-49); AST 22 U/L (14-35); Albumin 4.8 g/dL (3.8-4.9); Albumin/Globulin Ratio 2.09 Ratio (1.60-3.17); Alkaline Phosphatase 92 U/L (41-126); BUN/Creat Ratio 13.56 Ratio (12.00-20.00); Blood Urea Nitrogen 24.4 mg/dL (9.0-27.0); Calcium 10.1 mg/dL (8.7-10.3); Carbon Dioxide 26.9 mmol/L (21.6-31.8); Chloride 100 mmol/L (96-109); Globulin 2.3 g/dL (1.6-3.3); Glucose 154 mg/dL (70-110); Phosphorus 2.8 mg/dL (2.4-5.1); Potassium 4.3 mmol/L (3.5-5.5); Sodium 139 mmol/L (135-145); Total Bilirubin 0.5 mg/dL (0.3-1.2); Total Protein 7.1 g/dL (6.2-8.2); Uric Acid 5.9 mg/dL (3.7-8.7)
== END | disposition home or self-care (01) ==
LOC: LABWHC1 09:49
PROVIDERS: ATTEND Family Medicine
DX: N18.32 Chronic kidney disease, stage 3b (principal)
CPT/HCPCS: 36415; 80053; 83970; 84100; 84550

== ENCOUNTER → 2024-02-02 | Outpatient (CLI) | payer MEDICARE ==
[2024-02-02 15:05] LABS: Basophils # (A) 0.11 X 10*3/uL (0.00-0.10); Basophils % (A) 1.6 %; Eosinophils # (A) 0.25 X 10*3/uL (0.04-0.35); Eosinophils % (A) 3.7 %; HCT 42.2 % (39.6-50.0); HGB 14.5 g/dL (13.0-17.0); Lymphocytes # (A) 1.72 X 10*3/uL (0.90-5.00); Lymphocytes % (A) 25.8 %; MCH 29.6 pg (27.0-32.0); MCHC 34.4 g/dL (32.0-37.0); MCV 86.1 FL (80.0-97.0); Mean Platelet Volume 9.9 FL (9.5-12.2); Monocytes # (A) 0.52 X 10*3/uL (0.20-1.00); Monocytes % (A) 7.8 %; NRBC Per 100 WBC 0 X 10*3/uL (0.00-0.01); Neutrophils # (A) 4.06 X 10*3/uL (1.80-7.70); Platelet Count 193 X 10*3/uL (140-440); RDW 12.2 % (11.5-14.5); WBC 6.67 X 10*3/uL (4.50-10.00)
[2024-02-02 15:20] LABS: ALT 41 U/L (10-49); AST 24 U/L (14-35); Albumin 4.7 g/dL (3.8-4.9); Albumin/Globulin Ratio 1.96 Ratio (1.60-3.17); Alkaline Phosphatase 90 U/L (41-126); BUN/Creat Ratio 16.84 Ratio (12.00-20.00); Calcium 9.8 mg/dL (8.7-10.3); Carbon Dioxide 25.5 mmol/L (21.6-31.8); Chloride 97 mmol/L (96-109); Globulin 2.4 g/dL (1.6-3.3); Glucose 168 mg/dL (70-110); Magnesium 2.1 mg/dL (1.5-2.4); Phosphorus 3.6 mg/dL (2.4-5.1); Potassium 4.2 mmol/L (3.5-5.5); Sodium 135 mmol/L (135-145); Total Bilirubin 0.4 mg/dL (0.3-1.2); Total Protein 7.1 g/dL (6.2-8.2)
[2024-02-02 15:31] LABS: Appearance,Urine Clear (Clear); Bilirubin,Urine Negative (Negative); Blood,Urine Negative (Negative); Color,Urine Yellow (Yellow); Ketones,Urine Negative (Negative); Nitrite,Urine Negative (Negative); PH, Urine 5.5; Specific Gravity,Urine 1.015 (1.001-1.030); Urobilinogen,Urine 0.2 E.U./DL
[2024-02-02 15:44] LABS: Bacteria,Urine None Seen (None Seen)
[2024-02-02 22:06] LABS: Urine Creatinine 68.8 mg/dL (39.0-259.0)
== END | disposition home or self-care (01) ==
LOC: LABWHC1 10:26
PROVIDERS: ATTEND Internal Medicine
DX: N18.32 Chronic kidney disease, stage 3b (principal)
CPT/HCPCS: 36415; 80053; 81001; 82043; 82570; 83735; 84100; 85025

== ENCOUNTER → 2024-03-04 | Outpatient (CLI) | payer MEDICARE ==
--- NOTE | 2024-03-04 13:13 | US ---
EXAMINATION TYPE: US kidneys/renal and bladder DATE OF EXAM: 03/04/2024 COMPARISON: NONE CLINICAL INDICATION: Male, 73 years old with history of N18.32 CKD; HTN. DM, Hernia TECHNIQUE: Grayscale and color Doppler imaging of the bilateral kidneys and urinary bladder: FINDINGS: EXAM MEASUREMENTS: Right Kidney: 11.1 x 5.9 x 4.6 cm Left Kidney: 10.8 x 5.9 x 4.5 cm Post Void Residual Volume: NA mL Right Kidney: wnl, no evidence for hydronephrosis, mass or renal calculus. Left Kidney: Anechoic area upper medial pole = 2.8 x 3.2 x 2.3 cm Bladder: WNL Bilateral Jets seen: Yes Normal Post Void Residual: NA There is no evidence for hydronephrosis at this point in time. No nephrolithiasis is seen. The urin zeeshan bladder is anechoic. Incidental - echogenic foci with posterior shadowing seen within gallbladder; Echogenic areas within wall of gallbladder; Echogenic foci throughout spleen IMPRESSION: 1. No hydronephrosis or nephrolithiasis. 2. Gallbladder is distended with cholelithiasis. Additional adherent stone, gallbladder polyp or roman omyomatosis in the differential diagnosis. [facility], , 03/04/2024 1:11 PM
== END | disposition home or self-care (01) ==
LOC: RADUSWWP 11:23
PROVIDERS: ATTEND Internal Medicine
CPT/HCPCS: 76770

== ENCOUNTER → 2024-03-22 | Outpatient (CLI) | payer MEDICARE ==
[2024-03-22 15:41] LABS: Albumin 4.5 g/dL (3.8-4.9); BUN/Creat Ratio 19.79 Ratio (12.00-20.00); Blood Urea Nitrogen 37.6 mg/dL (9.0-27.0); Calcium 9.6 mg/dL (8.7-10.3); Carbon Dioxide 25.4 mmol/L (21.6-31.8); Chloride 98 mmol/L (96-109); Glucose 201 mg/dL (70-110); Phosphorus 3.9 mg/dL (2.4-5.1); Potassium 4.3 mmol/L (3.5-5.5); Sodium 136 mmol/L (135-145)
[2024-03-22 15:43] LABS: Appearance,Urine Clear (Clear); Bilirubin,Urine Negative (Negative); Blood,Urine Negative (Negative); Color,Urine Yellow (Yellow); Ketones,Urine Negative (Negative); Nitrite,Urine Negative (Negative); PH, Urine 5.5; Specific Gravity,Urine 1.018 (1.001-1.030); Urobilinogen,Urine 0.2 E.U./DL
[2024-03-22 15:59] LABS: Bacteria,Urine None Seen (None Seen)
[2024-03-22 19:17] LABS: Urine Creatinine 71.6 mg/dL (39.0-259.0)
== END | disposition home or self-care (01) ==
LOC: LABWHC1 09:51
PROVIDERS: ATTEND Internal Medicine
DX: N18.32 Chronic kidney disease, stage 3b (principal); N39.0 Urinary tract infection, site not specified
CPT/HCPCS: 36415; 80069; 81001; 82043; 82570

== ENCOUNTER → 2024-08-24 | Outpatient (CLI) | payer MEDICARE ==
[2024-08-24 10:41] LABS: Appearance,Urine Clear (Clear); Bilirubin,Urine Negative (Negative); Blood,Urine Negative (Negative); Color,Urine Colorless; Glucose,Urine (UA) 3+ (Negative); Ketones,Urine Negative (Negative); Leukocyte Esterase,Urine Negative (Negative); Nitrite,Urine Negative (Negative); PH, Urine 5.5 (5.0-8.0); Protein,Urine 1+ (Negative); RBC,Urine <1 /hpf (0-5); Specific Gravity,Urine 1.006 (1.001-1.035); Urobilinogen,Urine <2.0 mg/dL (<2.0); WBC,Urine 1 /hpf (0-5)
[2024-08-24 15:19] LABS: Albumin 4.5 g/dL (3.8-4.9); BUN/Creat Ratio 17.35 Ratio (12.00-20.00); Blood Urea Nitrogen 34.7 mg/dL (9.0-27.0); Calcium 9.8 mg/dL (8.7-10.3); Carbon Dioxide 24.7 mmol/L (21.6-31.8); Chloride 99 mmol/L (96-109); Glucose 143 mg/dL (70-110); Phosphorus 3.9 mg/dL (2.4-5.1); Potassium 4.2 mmol/L (3.5-5.5); Sodium 138 mmol/L (135-145)
[2024-08-24 20:18] LABS: Urine Creatinine 34.8 mg/dL (39.0-259.0)
== END | disposition home or self-care (01) ==
LOC: LABWHC1 09:47
PROVIDERS: ATTEND Internal Medicine
DX: N18.32 Chronic kidney disease, stage 3b (principal); N39.0 Urinary tract infection, site not specified; R80.9 Proteinuria, unspecified
CPT/HCPCS: 36415; 80069; 81001; 82043; 82570

== ENCOUNTER → 2024-10-18 | Outpatient (CLI) | payer MEDICARE ==
[2024-10-18 15:04] LABS: Basophils # (A) 0.11 X 10*3/uL (0.00-0.10); Basophils % (A) 1.6 %; Eosinophils # (A) 0.34 X 10*3/uL (0.04-0.35); Eosinophils % (A) 5.1 %; HCT 40.1 % (39.6-50.0); HGB 13.6 g/dL (13.0-17.0); Lymphocytes % (A) 23.8 %; MCH 29.6 pg (27.0-32.0); MCHC 33.9 g/dL (32.0-37.0); MCV 87.2 FL (80.0-97.0); Mean Platelet Volume 9.9 FL (9.5-12.2); Monocytes # (A) 0.53 X 10*3/uL (0.20-1.00); Monocytes % (A) 7.9 %; NRBC Per 100 WBC 0 X 10*3/uL (0.00-0.01); Neutrophils # (A) 4.09 X 10*3/uL (1.80-7.70); Neutrophils % (A) 60.9 %; Platelet Count 176 X 10*3/uL (140-440); RDW 12.5 % (11.5-14.5); WBC 6.72 X 10*3/uL (4.50-10.00)
[2024-10-18 15:42] LABS: ALT 31 U/L (10-49); AST 21 U/L (14-35); Albumin 4.3 g/dL (3.8-4.9); Albumin/Globulin Ratio 2.05 Ratio (1.60-3.17); Alkaline Phosphatase 71 U/L (41-126); Blood Urea Nitrogen 39.2 mg/dL (9.0-27.0); Calcium 9.2 mg/dL (8.7-10.3); Carbon Dioxide 25.5 mmol/L (21.6-31.8); Chloride 101 mmol/L (96-109); Chol/HDL Ratio 3.95 Ratio; Globulin 2.1 g/dL (1.6-3.3); Glucose 141 mg/dL (70-110); Magnesium 1.8 mg/dL (1.5-2.4); Potassium 4.4 mmol/L (3.5-5.5); Sodium 139 mmol/L (135-145); Total Bilirubin 0.4 mg/dL (0.3-1.2); Total Protein 6.4 g/dL (6.2-8.2)
== END | disposition home or self-care (01) ==
LOC: LABWHC1 10:52
PROVIDERS: ATTEND Internal Medicine
DX: Z12.5 Encounter for screening for malignant neoplasm of prostate (principal); Z11.59 Encounter for screening for other viral diseases; I10 Essential (primary) hypertension; E78.2 Mixed hyperlipidemia; E11.9 Type 2 diabetes mellitus without complications
CPT/HCPCS: 36415; 80053; 80061; 83036; 83735; 84153; 84443; 85025; 86803

== ENCOUNTER → 2024-11-29 | Outpatient (CLI) | payer MEDICARE ==
[2024-11-29 19:57] LABS: Albumin 4.7 g/dL (3.8-4.9); Anion Gap 16.00 mmol/L (4.00-12.00); BUN/Creat Ratio 20.26 Ratio (12.00-20.00); Blood Urea Nitrogen 46.6 mg/dL (9.0-27.0); Calcium 9.6 mg/dL (8.7-10.3); Carbon Dioxide 21.0 mmol/L (21.6-31.8); Chloride 100 mmol/L (96-109); Glucose 150 mg/dL (70-110); Potassium 4.1 mmol/L (3.5-5.5); Sodium 137 mmol/L (135-145)
[2024-11-30 03:48] LABS: Bilirubin,Urine Negative (Negative); Blood,Urine Negative (Negative); Color,Urine Yellow (Yellow); Ketones,Urine Negative (Negative); Nitrite,Urine Negative (Negative); PH, Urine 5.5; Specific Gravity,Urine 1.019 (1.001-1.030); Urobilinogen,Urine 0.2 E.U./DL
[2024-11-30 04:02] LABS: Bacteria,Urine None Seen (None Seen)
== END | disposition home or self-care (01) ==
LOC: LABWHC1 15:22
PROVIDERS: ATTEND Internal Medicine
DX: N18.32 Chronic kidney disease, stage 3b (principal); N39.0 Urinary tract infection, site not specified
CPT/HCPCS: 36415; 80069; 81001; 82043; 82570